=== PATIENT | female | born 2000 | race Caucasian/White ===

== ENCOUNTER 2024-04-29 01:25 | Outpatient (CLI) | payer BC, SELFPAY ==
[2024-04-29 14:37] LABS: Panorama Kit Sent via Fed Ex
[2024-04-29 14:42] LABS: Abs Immature Grans 0.02 10^3/uL (0.0-0.06); Absolute Basophil Count 0.03 10^3/uL (0.0-0.2); Absolute Eosinophil Count 0.18 10^3/uL (0.0-0.7); Absolute Lymphocyte Count 1.43 10^3/uL (1.2-3.4); Absolute Monocyte Count 0.61 10^3/uL (0.1-0.8); Absolute Neutrophil Count 3.88 10^3/uL (1.2-6.7); Basophils % 0.5 %; Eosinophils % 2.9 %; HCT 40.1 % (36.0-46.0); HGB 13.6 g/dL (11.2-15.7); Immature Grans % 0.3 %; Lymphocytes % 23.3 %; MCH 30.1 pg (27.0-33.0); MCHC 33.9 % (32.0-36.0); MCV 89 fL (80-95); Monocytes % 9.9 %; Neutrophils % 63.1 %; Platelet Count 256 10^3/uL (130-400); RBC 4.52 10^6/uL (3.93-5.22); RDW 12.4 % (11.7-14.6); RDW-SD 40.3 fL; WBC 6.15 10^3/uL (4.4-10.8)
[2024-05-01 13:12] LABS: HIV-1/2 Ag & Ab Screen Negative (Negative)
[2024-05-02 10:13] LABS: Rubella IgG Ab (UVM) Positive (See Note); Varicella IgG Antibody Positive (See Note)
[2024-05-02 11:31] LABS: Hepatitis B Surface Ag Negative (Negative)
[2024-05-02 12:09] LABS: Hepatitis C Ab w Rflx HCV PCR Negative (Negative)
[2024-05-02 18:47] LABS: Syphilis IgG w/Reflex Nonreactive (Nonreactive)
[2024-05-03 16:02] LABS: Specimen WB Whole Blood
[2024-05-06 16:55] LABS: Result Summary NEGATIVE; Specimen WB Whole Blood
== END 2024-04-29 01:26 | disposition home or self-care (01) ==
LOC: LBO 01:26
PROVIDERS: Visit Provider Advanced Practice Midwife
DX: Z34.91 Encounter for supervision of normal pregnancy, unspecified, first trimester (principal)
CPT/HCPCS: 36415; 81220; 81222; 81329; 86787; 86803; 86850; 86900; 86901; 87340; 87389; 85025; 86762; 86780

== ENCOUNTER 2024-04-29 14:12 | Outpatient (REF) | payer BC, SELFPAY ==
[2024-05-02 12:06] LABS: Chlamydia Result Negative (Negative); GC Result Negative (Negative)
== END 2024-04-29 14:13 | disposition home or self-care (01) ==
LOC: LBN 14:12
PROVIDERS: Visit Provider Advanced Practice Midwife
DX: Z34.91 Encounter for supervision of normal pregnancy, unspecified, first trimester (principal); Z3A.11 11 weeks gestation of pregnancy
CPT/HCPCS: 87077; 87491; 87591; 87086; 87186; 87480; 87510; 87660

== ENCOUNTER 2024-08-24 02:57 | Outpatient (CLI) | payer BC, SELFPAY ==
[2024-08-24 16:36] LABS: HCT 35.8 % (36.0-46.0); MCH 30.2 pg (27.0-33.0); MCHC 33.5 % (32.0-36.0); MCV 90 fL (80-95); MPV 10.3 fL (8.0-11.0); Platelet Count 221 10^3/uL (130-400); RBC 3.98 10^6/uL (3.93-5.22); RDW 14.2 % (11.7-14.6); RDW-SD 46.5 fL
[2024-08-24 16:45] LABS: Glucose,1 Hr (Glucola) 149 mg/dL (80-140)
== END 2024-08-24 02:58 | disposition home or self-care (01) ==
LOC: LBO 02:57
PROVIDERS: Visit Provider Advanced Practice Midwife
DX: Z34.92 Encounter for supervision of normal pregnancy, unspecified, second trimester (principal)
CPT/HCPCS: 36415; 82950; 85027

== ENCOUNTER 2024-09-08 12:51 | Outpatient (REF) | payer BC, SELFPAY | END 2024-09-08 12:52 | disposition home or self-care (01) | LOC: LBN 12:51 | PROVIDERS: Visit Provider Advanced Practice Midwife | DX: Z34.93 Encounter for supervision of normal pregnancy, unspecified, third trimester (principal); Z3A.30 30 weeks gestation of pregnancy | CPT/HCPCS: 87086 ==

== ENCOUNTER 2024-09-15 03:55 | Outpatient (CLI) | payer BC, SELFPAY ==
[2024-09-15 09:21] LABS: Glucose 1 Hour 162 mg/dL
[2024-09-15 11:30] LABS: Glucose 3 Hour 128 mg/dL
== END 2024-09-15 03:56 | disposition home or self-care (01) ==
LOC: LBO 03:55
PROVIDERS: Visit Provider Advanced Practice Midwife
DX: R73.09 Other abnormal glucose (principal)
CPT/HCPCS: 36415; 82951

== ENCOUNTER 2024-10-06 02:40 | Outpatient (CLI) | payer BC, SELFPAY ==
--- NOTE | 2024-10-06 07:45 | DI.US_ITS ---
Exam(s) US OB GAYLA WEIGHT EXAM: US OB GAYLA WEIGHT CLINICAL HISTORY: ,high fasting glucose, bleeding ,o20.9. TECHNIQUE: Transabdominal obstetrical ultrasound was performed. COMPARISON: US US OB 2-3 TRIMESTER from 06/28/2024 FINDINGS: There is a single viable intrauterine gestation with cardiac activity identified-142 bpm The fetus is presently in cephalic position . Amniotic fluid: There is a normal amount of amniotic fluid with an GAYLA of 16.64cm. Placental location: The placenta is anterior grade 2,with no evidence of placenta previa. Dating parameters place this at approximately 35 weeks and 3 days gestational age, implying FILIPPO of 11/07/2024. BPD measures 36 weeks and 3 days HC measures 36 weeks and 4 days AC measures 34 weeks and 5 days FL measures 33 weeks and 6 days Estimated weight is 2527 gm-5 pounds, 9 ounces Fetus is at the 53rd percentile on the Hadlock scale. IMPRESSION:: Viable 3rd trimester gestation, as described above. DATA REPOSITORY:
== END 2024-10-06 03:00 ==
PROVIDERS: PCP Pediatrics; Visit Provider Advanced Practice Midwife
DX: Z34.93 Encounter for supervision of normal pregnancy, unspecified, third trimester (principal); Z3A.36 36 weeks gestation of pregnancy; O20.8 Other hemorrhage in early pregnancy
CPT/HCPCS: 76816

== ENCOUNTER 2024-10-20 13:02 | Outpatient (REF) | payer BC, SELFPAY | END 2024-10-20 13:03 | disposition home or self-care (01) | LOC: LBN 13:02 | PROVIDERS: PCP Pediatrics; Visit Provider Advanced Practice Midwife | DX: Z34.90 Encounter for supervision of normal pregnancy, unspecified, unspecified trimester (principal) | CPT/HCPCS: 87081 ==

== ENCOUNTER 2024-11-03 13:03 | Outpatient (CLI) | payer BC, SELFPAY ==
--- NOTE | 2024-11-03 12:00 | DI.US_ITS ---
Exam(s) US OB GAYLA WEIGHT EXAM: US OB GAYLA WEIGHT CLINICAL HISTORY: Z34.90 size greater than dates, fundal height high for dates. TECHNIQUE: Transabdominal obstetrical ultrasound performed. COMPARISON: US US OB GAYLA WEIGHT from 10/06/2024 FINDINGS: Number of fetuses: 1 position: CEPHALIC Placental location: There is a grade 2 anterior placenta. No evidence of previa. BIOMETRIC DATA: BPD: 9.44cm, 38weeks 3days HC: 35.38cm, 41weeks 2days AC: 35.27cm, 39weeks 1day FL: 7.51cm, 38weeks 3days EFW: 3,705.88g, 8lb 2.47oz, 79.8% Composite Age: 39weeks 2days FILIPPO: 11/08/2024 Heart Rate: 137bpm Amniotic fluid index: 22.4cm. The largest pocket is 7.6 cm. IMPRESSION: 1. Single live intrauterine gestation as above. 2. Estimated weight is 3706gms. This is the 80th percentile. 3. Amniotic fluid index is 22.4 cm. The largest pocket is 7.6 cm. DATA REPOSITORY:
== END 2024-11-03 13:23 ==
LOC: DI 13:04
PROVIDERS: PCP Pediatrics; Visit Provider Advanced Practice Midwife
DX: Z34.93 Encounter for supervision of normal pregnancy, unspecified, third trimester (principal); Z3A.38 38 weeks gestation of pregnancy
CPT/HCPCS: 76816

== ENCOUNTER 2024-11-10 11:45 | Inpatient (IN) | payer BC, SELFPAY ==
[2024-11-10] VITALS (50 sets, daily range): BP systolic 108–128; BP diastolic 54–74; PULSE 0–135; RESP 16–18; TEMP 36.5–36.8; O2SAT 97–100; BMI 37.0
--- NOTE | 2024-11-10 11:53 | W.PM.OBHPL1 ---
Date of service: 11/10/24 Time of Service: 11:53 Assessment and Plan Assessment and plan (1) Normal labor: Status: Acute Assessment and plan: A: 24 yo G1 @ 39+4 wks, spontaneous onset of labor Did not meet criteria for GDM but elevated fasting glucose at 32 wks, TWG 45 lbs Spotty compliance with recommended QID testing, EFW @ 38 wks in 80th% by scan Moderate risk for SD and PPH due to EFW @ 3900 gms today Category 1 tracing on admission to , coping well with contractions P: Admit to , CBC and T&S, expectant management at this time Pt plans unmedicated , has support from FOB Encourage maternal movement and position changes, oral hydration OB-HPI Labor/Delivery History of Present Illness Reason for Visit: NST Chief Complaint: Uterine Contractions (contractions all morning, become more regular and frequent at 1000). FILIPPO Calculator Estimated Delivery Date Method Current WG Current Estimate 11/13/24 LMP (Certain) 39w 4d Other Estimates 11/13/24 Ultrasound #1 39w 4d History of Present Expected Delivery Route/Plan - CNM FOB/gabriella- De Velazco (first child) BG Eliza Wants unmedicated but will do what is needed Specific Issues/Plan 1. cFDNA low risk x5 female, CF & SMA negative, AFP is declined 2. Neg 5 Ps assessment 3. Vaginal spotting and discharge - vaginal pathogen screen=neg x3 4. Pos urine culture - enterococcus faecalis - treated with amoxicillin,KYLE neg 5. Glucola at 28 wks 149, 3 hr GTT @ 31 wks: fasting 99, other levels nml. [place] [facility] 3 wks or home monitoring. 5a. Discussed w/pt prefers to do QID home monitoring, supplies ordered, will bring log in next appt 5b. starting QID monitoring today 10/06/24, had declined initially then S>D and recommended strongly 6. S>D, 34wk EFW- 53%ile and GAYLA 16.6 6a. US at 38 weeks - GAYLA 22.4, EFW 8-3 Assessment: History Reviewed & Current Review of Systems Narrative: ROS completed and noncontributory PFSH All Active Problems (Updated 11/10/24 @ 13:18 by Sarah Delgado) Elevated glucose level (Acute) elevated fasting of 99 on 3 hr GTT, other levels nml Normal labor (Acute) (Acute) Medical History (Updated 11/10/24 @ 13:18 by Sarah Delgado) Missed menses Bleeding in early Fundal height high for dates History of asthma Family History (Updated 04/29/24 @ 13:08 by Ida Dailey CNM) Maternal Grandfather Kidney failure Fatty liver Mother Asthma Cholecystitis Social History Smoking/Tobacco Use Status: Never Smoking risk assessment performed?: Yes Alcohol Intake: never Substance use type: does not use Housing: house History History 1 Para 0 Hx # Term Pregnancies 0 Multiple births 0 Hx # Pregnancies 0 Ectopic pregnancies 0 AB induced 0 Hx Number of Living Children 0 AB spontaneous 0 Meds Allergies and Home Medications Allergies Allergy/AdvReac Type Severity Reaction Status Date / Time No Known Allergies Allergy Verified 11/03/24 11:09 Home Medications ?Medication ?Instructions ?Recorded ?Confirmed ?Type vitamins no.148-iron 27 1 cap PO DAILY 03/15/24 11/10/24 History mg-folate 1 mg-dha 205 mg capsule magnesium 200 mg tablet 400 mg PO DAILY 07/05/24 11/10/24 History alcohol swabs (Alcohol Wipes) 1 pad topical QID #100 ea 09/15/24 11/10/24 Rx blood sugar diagnostic (FreeStyle #100 ea 09/15/24 11/10/24 Rx Lite Strips) blood-glucose meter (FreeStyle #1 ea 09/15/24 11/10/24 Rx Lite Meter kit) lancets 28 gauge (FreeStyle #100 ea 09/15/24 11/10/24 Rx Lancets) Exam Physical Exam Vital signs: Pulse Pulse Ox 104 H 99 11/10/24 11:51 11/10/24 11:49 Vital Signs Reviewed: Yes Constitutional Constitutional: mild distress, obese and cooperative Detailed Labor and Delivery Exam Dilation: 4 Effacement (%): 100 station: -3 Position: OP Cervix position: mid Consistency: soft Amniotic Membrane Status: Intact (large forebag at cvx) Contraction Frequency(min): irreg Contraction Intensity: Mild/Moderate (with back pain) Fetus A Heart Rate Baseline: 145 Monitor Accelerations: Present Monitor Decelerations: None Variability: Moderate (6-25 BPM) Categories: Category I Est. Weight: 8 lb 9.568 oz Est. Weight: 3900 gms HEENT Exam HEENT Exam: Normal Neck Exam Neck Exam: Normal Chest/Brest/Axilla Exam Chest Exam: Normal Breast Exam Breast Exam: Not Done Respiratory Exam Respiratory Exam: Normal Cardiovascular Exam Cardiovascular Exam: Normal Abdominal Exam Abdominal Exam: Normal (gravid, soft) Rectal Exam Rectal Exam: Normal Exam Exam: Normal Extremities Exam Extremities Exam: Normal Back/Spine/Pelvis Exam Back Exam: Normal Pelvis Adequate: Yes Skin Exam Skin Exam: Normal Neurological Exam Neurological Exam: Normal Psychiatric Exam Psychiatric Exam: Normal Results Results Group Beta Strep: Negative Blood Type: A+ Rubella Status: Immune Varicella Immunity: Immune Risk Assessment Risk for Shoulder Dystocia Historical/Initial OB: NEGATIVE FOR: Pelvic Abnormality, Pre- BMI>30, Previous Shoulder Dystocia or Previous Macrosomia 36 Weeks: POSITIVE FOR: Maternal Weight Gain>40lbs; NEGATIVE FOR: Current Gestational DM or EFW>4500gms Increased Risk?: Yes Counselin10/27/24 Delivery Plan @ 36wks: Risk for Pre-Eclampsia Yes, if one or more: NEGATIVE FOR: Hx Pre-E/Gest HTN, Chronic HTN, Multiple Gestation, Pre-gestational DM, Renal Disease, Systemic Lupus or APA Syndrome Yes, if 2 or more: POSITIVE FOR: Nulliparity; NEGATIVE FOR: Age>= 35 yrs, >10yr btwn pregnancies, BMI>30, ethinicty, Mother/Sister w/ Pre-E or Previous IUGR Risk for Post- Hemorrhage Initial: NEGATIVE FOR: Multiple Gestation, Previous PPH, Known Clotting Deficiency, Grand Multiparity or Anticoagulation 36 Weeks: NEGATIVE FOR: Anemia, hgb<10, Low platelets(thrombocytopenia), Gestational HTN or Pre-E, Polyhydraminios or EFW>4500gms At Risk?: Yes Counseled re: Active Management: Yes Risks Reviewed Risks Reviewed Upon Admission: Yes
[2024-11-10 12:34] LABS: HCT 40.5 % (36.0-46.0); HGB 13.5 g/dL (11.2-15.7); MCH 29.9 pg (27.0-33.0); MCHC 33.3 % (32.0-36.0); MCV 90 fL (80-95); MPV 11.9 fL (8.0-11.0); Platelet Count 178 10^3/uL (130-400); RBC 4.52 10^6/uL (3.93-5.22); RDW 15.1 % (11.7-14.6); RDW-SD 48.9 fL; WBC 18.96 10^3/uL (4.4-10.8)
--- NOTE | 2024-11-10 18:06 | W.PM.OBNL1 ---
Date of service: 11/10/24 Time of Service: 18:06 Pelvic Exam Dilation: 6 (large forebag applied to cvx) Effacement (%): 100 station: -3 Position: ROP Contractions Monitor Mode: External Contraction Frequency(min): irregular q 2-4 Contraction Duration(sec): 50-70 Intensity: Moderate Fetus A Monitor: External (US) Heart Rate Baseline: 150 Variability: Moderate (6-25 BPM) (with periods of minimal variability) Categories: Category I (periods of cat 2 while variability is minimal, baseline occasionally ranging to 165) Accelerations: Absent Decelerations: None Amniotic Membrane Status: Intact Assessment Note: GAYLA at 38 wks = 22 cm Assessment and Plan Assessment and plan (1) Normal labor: Status: Acute Assessment and plan: A: Primipara in active labor, now 6 cm; low I&O during the day ROP position at high station, large forebag applied to cvx Category 1 tracing overall with periods of cat 2 d/t minimal variability Hgb 13.5, WBC 18.9, plts 178, random glucose 106 P: Bolus LR for rehydration and then continuous infusion Continuous EFM at this time, Dr. Rai consulting AROM discussed with pt, will consider when head descends Pt remains committed to unmedicated labor Objective Abnormal lab results 11/10/24 Range/Units 12:12 WBC 18.96 H (4.4-10.8) 10^3/uL RDW 15.1 H (11.7-14.6) % MPV 11.9 H (8.0-11.0) fL Temp Pulse Resp BP Pulse Ox 97.8 F 109 H 18 127/60 98 11/10/24 18:04 11/10/24 18:03 11/10/24 18:04 11/10/24 18:03 11/10/24 16:05 Laboratory Results WBC 18.96 10^3/uL (4.4-10.8) H 11/10/24 12:12 RBC 4.52 10^6/uL (3.93-5.22) 11/10/24 12:12 Hgb 13.5 g/dL (11.2-15.7) 11/10/24 12:12 Hct 40.5 % (36.0-46.0) 11/10/24 12:12 MCV 90 fL (80-95) 11/10/24 12:12 MCH 29.9 pg (27.0-33.0) 11/10/24 12:12 MCHC 33.3 % (32.0-36.0) 11/10/24 12:12 RDW 15.1 % (11.7-14.6) H 11/10/24 12:12 Plt Count 178 10^3/uL (130-400) 11/10/24 12:12 MPV 11.9 fL (8.0-11.0) H 11/10/24 12:12 ABO/Rh A Positive 11/10/24 12:12 Antibody Screen NEGATIVE 11/10/24 12:12 Vital Signs Reviewed: Yes Objective Narrative Objective Narrative: Pt breathing and moaning through contractions, coping well Accepts IV fluid for rehydration Normotensive, afebrile Subjective Interval history since last seen: Pt has ambulated, rested, soaked in warm tub, sipping water and juice without emesis, had BM, voided <100 ml twice since admission. States contractions are stronger and closer over the past 2 hours, declines nitrous or pain medication.
[2024-11-10] MEDS: Lactated Ringers 1,000 ML 1000 ML IV (18:19)
[2024-11-10] MEDS: Lactated Ringers 250 ML IV (19:00)
--- NOTE | 2024-11-10 21:07 | PGE_ITS ---
Date of service: 11/10/24 Time of Service: 21:07 Informed Consent Informed Consent: Regional Anesthesia and Risk,Benefits,Alternatives Discussed Pelvic Exam Dilation: 6 (Exam at 1999) Effacement (%): 100 station: -3 Position: ROP Cervix Position: mid Contractions Monitor Mode: External Contraction Frequency(min): q2-3 Intensity: Moderate Fetus A Monitor: External (US) Heart Rate Baseline: 140 Variability: Moderate (6-25 BPM) Categories: Category I Accelerations: Present Decelerations: None Amniotic Membrane Status: Intact (large forebag applied to cvx) Assessment and Plan Assessment and plan (1) Normal labor: Status: Acute Assessment and plan: A: need for pain management, maternal fatigue 2nd liter LR infusing, category 1 tracing P: DOCTORATE OF CHIROPRACTIC paged for epidural, FOB and pt's mother at bedside Reassess for progress and possible AROM when pt more comfortable Objective Vital Signs Reviewed: Yes Subjective Interval history since last seen: Contractions are stronger, back pain continues, started to get into tub again but turned back to bed since telemetry EFM was not working well. Has been using nitrous to moderate effect, feeling tired and pains seem never ending, now desires epidural.
--- NOTE | 2024-11-10 21:45 | ANES.PREOP_ITS ---
General Info Date of Service Date Performed: 11/10/24 Height: 5 ft 4 in Weight: 97.976 kg Body Mass Index (BMI): 37.0 Meds Allergies and Home Medications Allergies Allergy/AdvReac Type Severity Reaction Status Date / Time No Known Allergies Allergy Verified 11/03/24 11:09 Home Medication ?Medication ?Instructions ?Recorded vitamins no.148-iron 27 1 cap PO DAILY 03/15/24 mg-folate 1 mg-dha 205 mg capsule magnesium 200 mg tablet 400 mg PO DAILY 07/05/24 alcohol swabs (Alcohol Wipes) 1 pad topical QID #100 ea 09/15/24 blood sugar diagnostic (FreeStyle #100 ea 09/15/24 Lite Strips) blood-glucose meter (FreeStyle #1 ea 09/15/24 Lite Meter kit) lancets 28 gauge (FreeStyle #100 ea 09/15/24 Lancets) Current Visit Medications: Current Medications Generic Name Dose Route Start Last Admin Trade Name Freq PRN Reason Stop Dose Admin Fentanyl/Ropivacaine 200 ml 11/10/24 21:15 Fentanyl/Ropivacaine 2 Mcg/Ml And 0.1% 200 Ml Cadd Cassette EP DIRECTED KATELYN IV Miscellaneous Supplies 1 each 11/10/24 18:15 Iv Access IV DIRECTED KATELYN Sodium Chloride 0 ml 11/10/24 18:04 Normal Saline Flush 10 Ml Syr IVP PRN PRN Sodium Chloride 0 ml 11/10/24 20:00 Normal Saline Flush 10 Ml Syr IVP BID KATELYN Sodium Chloride 0 ml 11/10/24 18:04 Normal Saline 10 Ml Vial IJ DIRECTED PRN PFSH Active Problems Active Problems: Problem Status Onset Code Elevated glucose level Acute R73.09 Normal labor Acute O80, Z37.9 Acute Z34.90 Medical History Medical History (Updated 11/10/24 @ 13:18 by Sarah Delgado) Missed menses Bleeding in early Fundal height high for dates History of asthma Tobacco Smoking/Tobacco Use Status: Never Alcohol Alcohol Intake: never Substance Use Substance use type: does not use Prental History History 2 1 Para 0 Hx # Term Pregnancies 0 Multiple births 0 Hx # Pregnancies 0 Ectopic pregnancies 0 AB induced 0 Hx Number of Living Children 0 AB spontaneous 0 Vital Signs and Lab Results Vital Signs Most Recent Vital Signs in EMR: Most Recent Vital Signs Temp Pulse Resp BP Pulse Ox 36.6 C 111 H 18 127/60 97 11/10/24 18:04 11/10/24 20:11 11/10/24 18:04 11/10/24 18:03 11/10/24 20:11 Point of Care Results Point of Care Results: Finger Stick Blood Glucose 106 11/10/24 18:19 Lab Results 11/10/24 12:12 Blood Type / Crossmatch: 2 Antibody Screen NEGATIVE 11/10/24 Complete Blood Count: 2 White Blood Count 18.96 10^3/uL (4.4-10.8) H 11/10/24 12:12 Red Blood Count 4.52 10^6/uL (3.93-5.22) 11/10/24 12:12 Hemoglobin 13.5 g/dL (11.2-15.7) 11/10/24 12:12 Hematocrit 40.5 % (36.0-46.0) 11/10/24 12:12 Platelet Count 178 10^3/uL (130-400) 11/10/24 12:12 Complete Metabolic Panel: 2 No Data to Display Liver Function Panel: 2 No Data to Display Coagulation Panel: 2 No Data to Display Cardiac Panel: 2 No Data to Display Arterial Blood Gas: 2 No Data to Display Venous Blood Gas: 2 No Data to Display Pancreas Panel: 2 No Data to Display Thyroid Panel: 2 No Data to Display Infectious Disease: 2 No Data to Display Blood Cultures: 2 No Data to Display Toxicology Panel: 2 No Data to Display Panel: 2 No Data to Display Anesthesia Assessment and Plan Anesthesia History Personal History: No History of Anesthesia Complications Family History: No Family History of Anesthesia Complications Exercise Tolerance Exercise Tolerance: Metabolic Equivalents>4 Pertinent Negatives Pertinent Negatives: No Major Cardiovascular Symptoms or Complaints and No Major Pulmonary Symptoms or Complaints Cardiac & Pulmonary Exam Cardiac Exam: Normal S1/S2 Heart Sounds Pulmonary Exam: Clear Bilateral Breath Sounds Implantable Cardiac Device Does patient have a Pacemaker or an ICD?: No Airway Exam Known Difficult Airway: No Mallampati Class: 2 Mouth Opening: Normal (> 3cm) Thyromental Distance: Greater than 3 cm Neck Range of Motion: Full ROM Neck Circumference: Normal Teeth Condition: Normal Dentition ASA Classification ASA Score: ASA 2 Emergency Case?: No NPO Status NPO Status: Full Stomach () Status Status: Confirmed Anesthesia Plan Resuscitation Status: Full Code Anesthesia Technique: Labor Epidural Airway Planned: Natural Airway Monitors Used: Standard Monitors
[2024-11-10] MEDS: fentaNYL 100 MCG/2 ML VIAL (22:30)
--- NOTE | 2024-11-10 22:32 | ANES.NEUR_ITS ---
Epidural/Spinal Catheter Date Performed: 11/10/24 Procedure Start: 20:06 Procedure Stop: 22:36 Requesting Provider: Sarah Delgado Procedure Location: Obstetrics Reason Performed: Labor Epidural Standard Monitors Applied: Blood Pressure, SpO2 and See EMR for corresponding vital signs Patient Position: Sitting Sedation Given (Indicate Dose Given): No Sedation given Patient Mental Status: Awake Sterility: Hand Hygiene, Surgical Cap, Surgical Mask, Sterile Gloves, Sterile Drape/Sheet and Chlorhexidine Procedure Location: L3-L4 Interspace Epidural Needle: Tuohy 18 Gauge Needle Length: 3.5 Inch Needle Approach: Midline Epidural Procedure: Skin Prepped, Sterile Drape Placed, 1% Lidocaine to skin and subcutaneous tissue with 25G needle, Tuohy Needle placed, RICHARD to Saline Used, Epidural Catheter Placed, Negative Heme, Negative CSF Flow and Tuohy Needle Removed Catheter Placed?: Catheter Placed Test Dose (Indicate Dose Given): 3ml 1.5% Lidocaine with 1:200K Epinephrine Given and Negative Test Dose Loss of Resistance Depth (cm): 7 Catheter depth at skin (cm): 13 Dressing: Sorbaview Dressing Placed, Mastisol Used and Dressing reinforced with Tape Epidural Provid er Bolus (Indicate Dose Given): Total bolus dose given in 3-5 ml divided doses and Total Bupivacaine 0.25% Given (ml) Dose:: 6 ml Additives (Indicate Dose Given ): Fentanyl PF Dose:: 100 mcg Infusion Medication: Medication Infusion Began Medication Infusion: Ropivacaine 0.1% with Fentanyl 2mcg/ml Maintenance Infusion Rate (ml/hour): 10 PCEA Bolus Dose (ml): 5 Post Procedure Pain score (0-10): 0 Block Level: N/A Paresthesia: None Ultrasound: Not Used Number of Attempts (See previous attempts in note section): 2 Procedure Tolerated: No Complications and Patient tolerated well Procedure Outcome: Successful Procedure Comment:: First attempt at L2-3, parasthesia that radiated toward the vagina causing patient to jump, so needle withdrawn. Second attemot successful at L3-4 without sequelae. Performed By: Lindsay Cortes
[2024-11-10] MEDS: Bupivacaine 0.25% Pres-Free 10 ML VIAL (22:35)
[2024-11-10] MEDS: FentaNYL/ROPIvacaine 2 mcg/ml and 0.1% 200 ML CADD Cassette EP (22:38)
[2024-11-10] MEDS: Lactated Ringers 1,000 ML 150 ML IV (23:42)
[2024-11-11] VITALS (233 sets, daily range): BP systolic 42–134; BP diastolic 14–87; PULSE 81–152; RESP 8–24; TEMP 36.2–38.4; O2SAT 91–100
--- NOTE | 2024-11-11 00:28 | W.PM.OBNL1 ---
Date of service: 11/11/24 Time of Service: 00:29 Informed Consent Informed Consent: Augmentation of Labor, Risk,Benefits,Alternatives Discussed and Other (AROM with placement of internal monitors) Pelvic Exam Dilation: 6 Effacement (%): 100 station: -1 Contractions Monitor Mode: Internal Contraction Frequency(min): q3-4 Contraction Duration(sec): 50-70 Intensity: Mild/Moderate IUPC resting tone (mmHg): 20 IUPC peak pressure (mmHg): 40 Fetus A Monitor: Internal (FSE) Heart Rate Baseline: 145 Variability: Moderate (6-25 BPM) Categories: Category I Accelerations: Present Decelerations: None Amniotic Membrane Status: Ruptured Rupture Method: Spontaneous Amniotic Fluid: Clear Amount: large Date of Membrane Rupture: 11/11/24 Time of Membrane Rupture: 00:03 Assessment and Plan Assessment and plan (1) Slow progress in first stage of labor: Status: Acute Assessment and plan: A: No change in dilation @ 6 cm, vtx descended to -2, AROM of forebag with pt consent for clear fluid ISE/IUPC inserted with pt consent, cat 1 tracing noted, uncertain if IUPC is accurately recording intensity, frequency @ 3-4 minutes effective epidural anesthesia, pt feeling sleepy and resting P: Dr. Rai consulting, collaborative plan of care implemented Begin pitocin augmentation, monitor for dilation and descent with adequate labor Adjust IUPC or replace prn, pt positioned laterally with pnut ball Objective Vital Signs Reviewed: Yes Subjective Interval history since last seen: Epidural is providing relief, pt can still feel contractions with mild back pain but finds this tolerable, is feeling sleepy.
[2024-11-11] MEDS: Oxytocin/Normal Saline 30 UNIT/500 ML BAG 2 UNITS IV (00:44)
--- NOTE | 2024-11-11 02:57 | W.PM.OBNL1 ---
Date of service: 11/11/24 Time of Service: 02:57 Informed Consent Informed Consent: Augmentation of Labor and Risk,Benefits,Alternatives Discussed Pelvic Exam Dilation: 8 Effacement (%): 100 station: -1 (molding palpable to 0 station) Contractions Monitor Mode: External Contraction Frequency(min): q2 Fetus A Monitor: Internal (FSE) Heart Rate Baseline: 175 Variability: Minimal (1-5 BPM) Categories: Category II Accelerations: Absent Decelerations: None Amniotic Membrane Status: Ruptured Assessment and Plan Assessment and plan (1) Slow progress in first stage of labor: Status: Acute Assessment and plan: A: Cvx has advanced to 8 cm, head -1/0, molding palpable Cat 2 tracing d/t baseline @ 175 with minimal variability noted when FSE replaced at 0245 Pitocin decreased in response to contraction frequency and cat 2 tracing Recent oral maternal temp 36.8 (@0205) P: Dr. Rai up to review tracing Will switch to toco and remove IUPC, insert glass, 500 ml IVF bolus Reassess for descent in 2 hrs (2) Category II heart rate tracing during labor and delivery: Status: Acute Objective Vital Signs Reviewed: Yes Objective Narrative Objective Narrative: Intermittent mid back pain the improves with maternal positioning Pt has been feeling shakey but not cold Pitocin at 6 u/min, decreased to 5 due to tachysystole FSE fell off and replaced IUPC indicating frequency but unreliable for intensity/MVU's
--- NOTE | 2024-11-11 03:37 | W.PM.OBNL1 ---
Date of service: 11/11/24 Time of Service: 03:37 Informed Consent Informed Consent: Augmentation of Labor and Risk,Benefits,Alternatives Discussed Contractions Monitor Mode: External Contraction Frequency(min): q2 Fetus A Monitor: Internal (FSE) Heart Rate Baseline: 190 Variability: Minimal (1-5 BPM) Categories: Category II Accelerations: Absent Decelerations: None Amniotic Membrane Status: Ruptured Assessment and Plan Assessment and plan (1) Category II heart rate tracing during labor and delivery: Status: Acute Assessment and plan: A: Maternal temp deon to 38.4, maternal HR 130's, FHT baseline deon to 190 No accels and no decels, Reported change to Dr. Rai, suspected chorioamnionitis P: Pitocin turned off due to cat 2 tracing Ampicillin 2 gm IVPB, gentamycin 120 mg IVPB (dose verified via telepharmacy), tylenol 650 mg PO IV fluid bolus in progress, 2nd IV access initiated Pt and family questions addressed and answered as well as possible (2) Slow progress in first stage of labor: Status: Acute Objective Vital Signs Reviewed: Yes Subjective Interval history since last seen: Pt had large emesis of 800ml and afterward felt relief from shaking, with supine positioning her mid back pain went away. Epidural remains effective.
[2024-11-11] MEDS: AMPICILLIN SODIUM 2 GM in Normal Saline 100 ML IVPB ×4 (03:38→21:32)
[2024-11-11] MEDS: Acetaminophen 325 MG TAB 650 MG PO (03:54)
[2024-11-11] MEDS: GENTAMICIN 120 MG in Normal Saline 100 ML 200 MG IVPB (04:16)
[2024-11-11] MEDS: Normal Saline Flush 10 ML SYR IVP ×2 (04:32→19:48)
--- NOTE | 2024-11-11 05:04 | W.PM.OBNL1 ---
Date of service: 11/11/24 Time of Service: 05:04 Pelvic Exam Dilation: 7 Effacement (%): 100 station: -1 Contractions Monitor Mode: External Contraction Frequency(min): q2 Intensity: Mild/Moderate Fetus A Monitor: Internal (FSE) Heart Rate Baseline: 180 Variability: Minimal (1-5 BPM) Categories: Category II Accelerations: Absent Decelerations: None Amniotic Membrane Status: Ruptured Assessment and Plan Assessment and plan (1) Category II heart rate tracing during labor and delivery: Status: Acute Assessment and plan: A: vaginal exam without descent or further dilation, pitocin has been off >1hr, Amp and gent infused, maternal temp 37.9, mHR 139 cat 2 tracing persisting; contractions per toco q2 minutes P: Dr. Rai in to discuss route of delivery with pt (2) Slow progress in first stage of labor: Status: Acute Objective Vital Signs Reviewed: Yes Subjective Interval history since last seen: Epidural remains effective, mid-back pain intermittently occurring, pt aware of likely need for c/s and questions/concerns encouraged
--- NOTE | 2024-11-11 05:49 | OBCE_ITS ---
Date of service: 11/11/24 Time of Service: 05:49 Assessment and Plan Assessment and plan (1) Chorioamnionitis: Status: Acute Assessment and plan: Patient presented with WBC of 18K on admission 12/08/2024. Afebrile at that time. She developed elevated temperature with tachycardia at approximately 03:00 on 11/11/2024. Gentamicin dosing and 20 mg every 8 hours initiated along with ampicillin 2 g every 6 hours. Acetaminophen administered. tachycardia did not resolve temperatures decreased but still elevated. Will continue antibiotics until afebrile. (2) Abnormal labor: Status: Acute Assessment and plan: Slow progress of cervical change with regression of cervical dilation after oxytocin temporarily stopped. Patient consented to a primary low-transverse delivery.Preop counseling: She was informed of the risks of procedure including risk of damage to bowel, bladder, and blood vessels during the time of the delivery. If any of those injuries were to occur she may require a repair at the time of surgery or blood transfusion or possible hysterectomy. I reviewed the risk of infection and the administration of IV Abx prior to the surgery. History of Present Illness History of Present Illness Chief Complaint: abnormal labor, arrest of dilation, chorioamnioitis Narrative: Pt is a 24yo female who presented to the at 39w4d EGA on 11/10/24 ~12:00 with painful regular contractions. SVE 4cm, -3 station. Admitted and progressed to 6cm by 21:00 on 11/10/23. Pt received labor epidural after which SROM with clear fluid and Oxytocin augmentation of labor initiated. 11/11/24 @ 03:00: maximum Oxytocin dose 6mu/min with SVE 8cm, TMax 38.1, tachycardia. Oxytocin discontinued and 2gm Ampicillin, 120mg Gentamycin and Acetaminophen administered. 11/11/24 @ ~ 0500 with Oxytocin off for 2 hours cervical exam now 7 and vertex -2 per CNM report. tachycardia persists. Decision to proceed with pLTCS discussed with pt and family. Informed and written consent obtained. OR crew and peds provider notified. Consults Consult date: 11/11/24 Requesting physician: Sarah Delgado Review of Systems Narrative: Pain in back at epidural sight now resolved. Feels hot. Anxious about the procedure All systems reviewed & are unremarkable except as noted in HPI and below PFSH All Active Problems (Updated 11/11/24 @ 06:20 by Irlanda Rai MD) Abnormal labor (Acute) Chorioamnionitis (Acute) Category II heart rate tracing during labor and delivery (Acute) Slow progress in first stage of labor (Acute) Elevated glucose level (Acute) elevated fasting of 99 on 3 hr GTT, other levels nml (Acute) Medical History (Updated 11/11/24 @ 06:20 by Irlanda Rai MD) Normal labor Missed menses Bleeding in early Fundal height high for dates History of asthma Family History (Updated 04/29/24 @ 13:08 by Ida Dailey CNM) Maternal Grandfather Kidney failure Fatty liver Mother Asthma Cholecystitis Social History Smoking/Tobacco Use Status: Never Smoking risk assessment performed?: Yes Alcohol Intake: never Substance use type: does not use Housing: house History History 2 1 Para 0 Hx # Term Pregnancies 0 Multiple births 0 Hx # Pregnancies 0 Ectopic pregnancies 0 AB induced 0 Hx Number of Living Children 0 AB spontaneous 0 Exam Const General: no acute distress Nutritional Appearance: well nourished Orientation: alert, awake and oriented x3 Resp Effort & Inspection: normal respiratory effort Auscultation: clear to auscultation bilaterally Cardio Rate: tachycardic Rhythm: regular rhythm GI Palpation: soft (gravid) Amniotic Fluid: clear Other: SVE per CNM Skin General skin exam: no rashes or lesions noted Neuro General: patient alert, patient awake and patient oriented x3 Motor: other ( tone secondary to epidural) Extrem General: normal to inspection and edema (1+ pretibial edema) Psych Appearance: grossly normal Mental Status: mental status grossly normal Speech and Movement: speech and movement normal Mood: congruent mood Affect: normal affect Attitude: cooperative Results Last Vital Signs Temp 100.2 F H 11/11/24 04:49 Pulse 133 H 11/11/24 05:46 Resp 18 11/10/24 18:04 BP 105/53 L 11/11/24 05:33 Pulse Ox 95 11/11/24 05:46 Labs 11/10/24 12:12 Labs: Laboratory Results - last 24 hr 11/10/24 12:12 WBC 18.96 H RBC 4.52 Hgb 13.5 Hct 40.5 MCV 90 MCH 29.9 MCHC 33.3 RDW 15.1 H Plt Count 178 MPV 11.9 H ABO/Rh A Positive Antibody Screen NEGATIVE
[2024-11-11] MEDS: ceFAZolin 3,000 MG in Normal Saline 100 ML 200 MG IVPB (06:10)
[2024-11-11] MEDS: Lactated Ringers 1,000 ML 200 ML IV ×2 (06:29→07:30)
[2024-11-11] MEDS: CLINDAMYCIN 900 MG/50 ML BAG 50 MG IVPB ×3 (06:40→21:57)
[2024-11-11] MEDS: Bupivacaine 0.25% Pres-Free 30 ML VIAL (06:50)
[2024-11-11] MEDS: AZITHROMYCIN 500 MG in Normal Saline 250 ML 250 MG IVPB (06:57)
--- NOTE | 2024-11-11 07:00 | PLAC_PTH ---
PATIENT: Nasir Silvestre LOC: OBS U#:[id number] AGE/SX: 24/F ROOM: OBS.305 RE11/10/[address]: RAISSA: 2000 BED: A DIS: 11/14/2024 SPEC #: [id number] RECD: 11/11/24 12:17 STATUS: MIKE REQ #: [id number] CINDY: 11/11/24 07:[address]: Sarah Delgado DEPT: Surgical Specimen RECD BY: Rola Hennessy ENTERED: 11/11/24 12:18 SP TYPE: PLAC OTHR DR: Mary Soria Tissues: 1 - PLACENTA (3RD TRIMESTER) Procedures: GROSS AND MICRO LEVEL 5 Comments: [id number]
[2024-11-11] MEDS: Norepinephrine in D5W 8 MG/250 ML BAG 9.375 MG IV (07:20)
[2024-11-11] MEDS: Oxytocin/Normal Saline 30 UNIT/500 ML BAG 95 UNITS IV (07:30)
--- NOTE | 2024-11-11 08:06 | W.PM.OBCSECT ---
Date of service: 11/11/24 Time of Service: 08:06 Operative Note Operative Note Delivery Method: Unscheduled STAT: No and Primary NTSV>37 Weeks: Yes DATE OF PROCEDURE: 11/11/24 PRE-OP DIAGNOSES: 39w5D EGA, abnormal labor, chorioamnionitis POST-OP DIAGNOSES: same PROCEDURE: Primary low-transverse delivery SURGEON: Irlanda Rai Structural [employer] Erector: Nitza Ayala Anesthesia: spinal Estimated blood loss (mL): 600 Pathology: other (Cord blood to lab, umbilical cord gases, placenta to pathology) Complications: None Patient was transported to: PACU Patient's condition: stable Indications: 24-year-old G1, P1 female who was admitted in early active labor on 11/10/2024. Slow labor progress. Patient received oxytocin augmentation for maximum dilation of 8 cm. Developed tachycardia and maternal fever and Oxytocin infusion was discontinued for 2 hours while antibiotics were administered. During two hours without Oxytocin infusion cervix regressed from 8 to 7cm and vertex regressed from -1 to -2. Pt received initial Gentmycin dose of 120mg along with Ampicillin 2gm and Clindamycin 900mg three hours prior to OR. Plan is to continue dosing those antibiotics until pt has been afebrile for 24hrs. Gent dosing will be changed to 360mg q24hr. Findings: viable female infant in OP position. Wt:4050gm Apgars 6/9 . Clear amniotic fluid. L broad ligament fibroid 3cm in diameter in close approximation to L uterine cornua. Nl uterus, ovaries and fimbria. Umbilical arterial cord gases: PH 7.28, BE -2. Procedure Description: Patient was taken to the operating room she is placed in the sitting position, epidural catheter removed and spinal anesthesia was administered without difficulty. She was then placed in the dorsal supine position with a leftward tilt. SCDs were placed and scalp electrode removed. A Richards catheter to gravity drainage was already in place. A vaginal prep with Betadine was performed and the patient was prepped and draped in the usual sterile fashion.Surgical timeout was performed. Preop antibiotics had been administered per protocol a dose of IV Tranexamic Acid was administere. . After a adequate level of anesthesia was achieved a Pfannenstiel skin incision was made approximately 2 cm superior to the pubic symphysis using a scalpel and the underlying subcutaneous tissue dissected using Bovie electrocautery to the level of the rectus fascia. The rectus fascia was then nicked in the midline and the fascial incision extended laterally using Bovie electrocautery. 2 Juan José clamps were applied to the superior rectus fascia and the rectus fascia was dissected off of the underlying rectus muscles using Bovie electrocautery and blunt technique. A similar technique was carried out on the inferior rectus fascia. Rectus muscles were then in the midline and the peritoneum entered bluntly. The peritoneal incision was extended laterally using blunt technique. The vesicle-uterine peritoneum over lower uterine segment was incised with curved Lomax scissors and the bladder flap created bluntly. Scalpel was used to incise the lower uterine segment in a transverse fashion. The uterine incision was extended bluntly and the amniotic sac was ruptured with clear amniotic fluid noted. A single gloved hand was placed into the uterine cavity and the head was successfully delivered through the uterine incision followed by the trunk and extremities with the assistance of fundal pressure. The cord was doubly clamped and cut and the handed off to the waiting pediatric team. A segment of umbilical cord was obtained and the placenta was extracted with a combination of fundal massage and gentle cord traction. The uterus was exteriorized cleared of all clots and debris and the uterine incision reapproximated with a running lock suture of 0 Vicryl followed by a second imbricating suture of 0 Vicryl. Uterine incision was noted be hemostatic. The uterus was returned to the abdomen and the paracolic gutters cleared of all clots and debris. Uterine incision and the along with the bladder flap and the abdominal wall were all inspected and noted to be hemostatic. The rectus fascia was reapproximated with a running suture of 0 Vicryl. space within the subcutaneous tissue closed with an interrupted suture of 2-0 Vicryl. The skin incision was reapproximated with a subcuticular closure of 4-0 Vicryl. Skin glue as applied to the incision and a Picco dressing was applied. The uterus was massaged for any remaining clots and debris. The patient was transported to PACU for further monitoring of blood pressure. All sponge, lap, and needle counts correct x2. [place] Gestational Age in Weeks/Days: 39 Weeks and 5 Days Infant Gender: Female weight: 8 lb 14.86 oz See Nursing Delivery Note for weight and Scores: Apgars: 6/9. Her parents intend to name her Eliza.
[2024-11-11] MEDS: Lactated Ringers 1,000 ML 120 ML IV (09:05)
[2024-11-11] MEDS: Lactated Ringers 500 ML 1000 ML IV (09:43)
[2024-11-11 11:17] LABS: Abs Immature Grans 0.57 10^3/uL (0.0-0.06); HCT 35.7 % (36.0-46.0); HGB 11.7 g/dL (11.2-15.7); Lactate 2.9 mmol/L (<or=2.0); MCH 30.2 pg (27.0-33.0); MCHC 32.8 % (32.0-36.0); MCV 92 fL (80-95); MPV 12.3 fL (8.0-11.0); Platelet Count 159 10^3/uL (130-400); RBC 3.88 10^6/uL (3.93-5.22); RDW 15.3 % (11.7-14.6); RDW-SD 50.5 fL
[2024-11-11 11:25] LABS: WBC 31.69 10^3/uL (4.4-10.8)
[2024-11-11 11:28] LABS: Bilirubin Negative (Negative); Blood Large (Negative); Clarity Clear (Clear); Glucose Negative (Negative); Ketones Negative (Negative); Leukocyte Esterase Negative (Negative); Nitrite Negative (Negative); Urobilinogen 0.2 mg/dL (Up to 0.2)
[2024-11-11 11:37] LABS: Absolute Lymphocyte Count 0.32 10^3/uL (1.2-3.4); Absolute Neutrophil Count 29.47 10^3/uL (1.2-6.7); Bands % 27 %
[2024-11-11 11:38] LABS: Absolute Monocyte Count 1.27 10^3/uL (0.1-0.8); Diff Comment Manual Differential
[2024-11-11 11:39] LABS: INR 1.1 (0.9-1.1); PTT Activated 28.3 sec (20.6-30.2); Prothrombin Time 10.9 sec (9.1-11.1); RBC Morphology Normal
[2024-11-11 11:43] LABS: ALT 16 U/L (14-59); AST 23 U/L (15-37); Albumin 1.8 g/dL (3.4-5.0); Alkaline Phosphatase 133 U/L (46-116); Anion Gap 11.5 mmol/L (3-11); BUN 7 mg/dL (7-18); Bilirubin, Total 1.37 mg/dL (0.2-1.0); CO2 24.5 mmol/L (21.0-32.0); CREATININE 1.1 mg/dL (0.55-1.02); Calcium 8.9 mg/dL (8.5-10.1); Chloride 106 mmol/L (98-107); Estimated GFR 72.86 (mL/min/1.73m2); Glucose 134 mg/dL (74-106); Potassium 3.2 mmol/L (3.5-5.1); Sodium 142 mmol/L (136-145); Total Protein 5.5 g/dL (6.4-8.2)
--- NOTE | 2024-11-11 11:45 | PGE_ITS ---
Date of Service Date of service: 11/11/24 Time of Service: 11:45 Objective Last Vital Signs Temp 99.0 F 11/11/24 11:36 Pulse 107 H 11/11/24 11:36 Resp 17 11/11/24 11:36 BP 117/68 11/11/24 11:07 Pulse Ox 97 11/11/24 11:36 Laboratory Results - last 24 hr 11/10/24 11/11/24 11/11/24 12:12 10:02 10:25 WBC 18.96 H RBC 4.52 Hgb 13.5 Hct 40.5 MCV 90 MCH 29.9 MCHC 33.3 RDW 15.1 H Plt Count 178 MPV 11.9 H Immature Gran % Neutrophils % Band Neutrophils % Lymphocytes % Monocytes % Eosinophils % Basophils % Nucleated RBC % Absolute Neutrophils Absolute Lymphocytes Absolute Monocytes Absolute Eosinophils Absolute Basophils RBC Morphology PT INR APTT VBG Lactate Sodium Cancelled Potassium Cancelled Chloride Cancelled Carbon Dioxide Cancelled Anion Gap Cancelled BUN Cancelled Creatinine Cancelled Est GFR (CKD-EPI 2020) Cancelled Glucose Cancelled Calcium Cancelled Total Bilirubin Cancelled AST Cancelled ALT Cancelled Alkaline Phosphatase Cancelled Total Protein Cancelled Albumin Cancelled Urine Color Yellow Urine Clarity Clear Urine pH 7.0 Ur Specific [place] 1.010 Urine Protein Trace Urine Ketones Negative Urine Blood Large H Urine Nitrite Negative Urine Bilirubin Negative Urine Urobilinogen 0.2 Ur Leukocyte Esterase Negative Urine Glucose Negative ABO/Rh A Positive Antibody Screen NEGATIVE 11/11/24 11:05 WBC 31.69 H* RBC 3.88 L Hgb 11.7 Hct 35.7 L MCV 92 MCH 30.2 MCHC 32.8 RDW 15.3 H Plt Count 159 MPV 12.3 H Immature Gran % See Differential Neutrophils % 66.0 Band Neutrophils % 27 Lymphocytes % 1.0 Monocytes % 4.0 Eosinophils % 0.0 Basophils % 0.0 Nucleated RBC % 0.0 Absolute Neutrophils 29.47 H Absolute Lymphocytes 0.32 L Absolute Monocytes 1.27 H Absolute Eosinophils 0.00 Absolute Basophils 0.00 RBC Morphology Normal PT 10.9 INR 1.1 APTT 28.3 VBG Lactate 2.9 H* Sodium 142 Potassium 3.2 L Chloride 106 Carbon Dioxide 24.5 Anion Gap 11.5 H BUN 7 Creatinine 1.1 H Est GFR (CKD-EPI 2020) 72.86 Glucose 134 H Calcium 8.9 Total Bilirubin 1.37 H AST 23 ALT 16 Alkaline Phosphatase 133 H Total Protein 5.5 L Albumin 1.8 L Urine Color Urine Clarity Urine pH Ur Specific [place] Urine Protein Urine Ketones Urine Blood Urine Nitrite Urine Bilirubin Urine Urobilinogen Ur Leukocyte Esterase Urine Glucose ABO/Rh Antibody Screen Objective Narrative Objective Narrative: 24 yo G1 now P1001 s/p 39 wk primary low transverse section for arrest of labor; patient had presented to L&D for active labor. She was expectantly managed by the midwives. Around 2 am she reportedly developed a fever and her baby became tachycardic. She was diagnosed with chorioamnionitis and Ampicillin, Gentamycin, and Clindamycin was initiated. She was taken to the OR around 7 am for section which was reportedly completed without issue. When she arrived in PACU, her blood pressures were noted to be soft. She had been on phenylephrine in the - 2L while in labor, 1700 in OR, 500 bolus in PACU - Gentamycin; Cr 1.1 - Recieved Gentamycin 120 mg
[2024-11-11 11:46] LABS: WBC 0-2 HPF (0-5)
[2024-11-11 11:47] LABS: Bacteria Negative HPF (Negative); C & S Indicated? C&S Done As Ordered; Casts Negative LPF (Negative); Crystals Negative HPF (Negative); Epithelial Cells Negative HPF (Negative); Mucus Negative (Negative); RBC 20-50 HPF (0-2)
[2024-11-11 11:52] LABS: COVID-19 PCR Negative (Negative); Influenza A PCR Negative (Negative); Influenza B PCR Negative (Negative); RSV PCR Negative (Negative)
[2024-11-11 11:59] LABS: Source Nasopharynx
[2024-11-11] MEDS: Ketorolac 30 MG/ML VIAL IVP (13:11)
[2024-11-11 13:53] LABS: Fibrinogen (Stat) (Littleton) 463 mg/dL (208-434)
[2024-11-11 14:35] LABS: Lactate 3.1 mmol/L (<or=2.0)
[2024-11-11 14:38] LABS: HCT 28.8 % (36.0-46.0); HGB 9.7 g/dL (11.2-15.7); MCH 30.9 pg (27.0-33.0); MCHC 33.7 % (32.0-36.0); MCV 92 fL (80-95); Platelet Count 144 10^3/uL (130-400); RBC 3.14 10^6/uL (3.93-5.22); RDW 15.5 % (11.7-14.6); RDW-SD 51.2 fL
[2024-11-11 14:40] LABS: WBC 31.02 10^3/uL (4.4-10.8)
[2024-11-11 14:52] LABS: ALT 10 U/L (14-59); AST 18 U/L (15-37); Albumin 1.4 g/dL (3.4-5.0); Alkaline Phosphatase 106 U/L (46-116); Anion Gap 9.5 mmol/L (3-11); BUN 7 mg/dL (7-18); CO2 23.5 mmol/L (21.0-32.0); Calcium 8.3 mg/dL (8.5-10.1); Chloride 108 mmol/L (98-107); Estimated GFR 81.69 (mL/min/1.73m2); Glucose 145 mg/dL (74-106); Sodium 141 mmol/L (136-145); Total Protein 4.5 g/dL (6.4-8.2)
--- NOTE | 2024-11-11 15:41 | W.PM.PROGNOT ---
Date of Service Date of service: 11/11/24 Time of Service: 15:42 Assessment and Plan Assessment and plan (1) Sepsis: Status: Acute Objective Last Vital Signs Temp 97.7 F 11/11/24 14:32 Pulse 101 H 11/11/24 15:01 Resp 19 11/11/24 15:01 BP 88/51 L 11/11/24 15:01 Pulse Ox 94 11/11/24 15:01 Laboratory Results - last 24 hr 11/11/24 11/11/24 11/11/24 10:02 10:25 11:05 WBC 31.69 H* RBC 3.88 L Hgb 11.7 Hct 35.7 L MCV 92 MCH 30.2 MCHC 32.8 RDW 15.3 H Plt Count 159 MPV 12.3 H Immature Gran % See Differential Neutrophils % 66.0 Band Neutrophils % 27 Lymphocytes % 1.0 Monocytes % 4.0 Eosinophils % 0.0 Basophils % 0.0 Nucleated RBC % 0.0 Absolute Neutrophils 29.47 H Absolute Lymphocytes 0.32 L Absolute Monocytes 1.27 H Absolute Eosinophils 0.00 Absolute Basophils 0.00 RBC Morphology Normal PT 10.9 INR 1.1 APTT 28.3 Fibrinogen 463 H VBG Lactate 2.9 H* Sodium Cancelled 142 Potassium Cancelled 3.2 L Chloride Cancelled 106 Carbon Dioxide Cancelled 24.5 Anion Gap Cancelled 11.5 H BUN Cancelled 7 Creatinine Cancelled 1.1 H Est GFR (CKD-EPI 2020) Cancelled 72.86 Glucose Cancelled 134 H Calcium Cancelled 8.9 Total Bilirubin Cancelled 1.37 H AST Cancelled 23 ALT Cancelled 16 Alkaline Phosphatase Cancelled 133 H Total Protein Cancelled 5.5 L Albumin Cancelled 1.8 L Urine Color Yellow Urine Clarity Clear Urine pH 7.0 Ur Specific [place] 1.010 Urine Protein Trace Urine Ketones Negative Urine Blood Large H Urine Nitrite Negative Urine Bilirubin Negative Urine Urobilinogen 0.2 Ur Leukocyte Esterase Negative Urine RBC 20-50 H Urine WBC 0-2 Ur Epithelial Cells Negative Urine Crystals Negative Urine Bacteria Negative Urine Casts Negative Urine Mucus Negative Ur Culture Indicated? C&S Done As Ordered Urine Glucose Negative COVID-19 Source SARS-CoV-2 (PCR) Influenza Type A (PCR) Influenza Type B (PCR) RSV (PCR) 11/11/24 11/11/24 11:06 14:26 WBC 31.02 H* RBC 3.14 L Hgb 9.7 L D Hct 28.8 L MCV 92 MCH 30.9 MCHC 33.7 RDW 15.5 H Plt Count 144 MPV 12.0 H Immature Gran % Neutrophils % Band Neutrophils % Lymphocytes % Monocytes % Eosinophils % Basophils % Nucleated RBC % Absolute Neutrophils Absolute Lymphocytes Absolute Monocytes Absolute Eosinophils Absolute Basophils RBC Morphology PT INR APTT Fibrinogen VBG Lactate 3.1 H* Sodium 141 Potassium 3.0 L Chloride 108 H Carbon Dioxide 23.5 Anion Gap 9.5 BUN 7 Creatinine 1.0 Est GFR (CKD-EPI 2020) 81.69 Glucose 145 H Calcium 8.3 L Total Bilirubin 0.90 AST 18 ALT 10 L Alkaline Phosphatase 106 Total Protein 4.5 L Albumin 1.4 L Urine Color Urine Clarity Urine pH Ur Specific [place] Urine Protein Urine Ketones Urine Blood Urine Nitrite Urine Bilirubin Urine Urobilinogen Ur Leukocyte Esterase Urine RBC Urine WBC Ur Epithelial Cells Urine Crystals Urine Bacteria Urine Casts Urine Mucus Ur Culture Indicated? Urine Glucose COVID-19 Source Nasopharynx SARS-CoV-2 (PCR) Negative Influenza Type A (PCR) Negative Influenza Type B (PCR) Negative RSV (PCR) Negative
--- NOTE | 2024-11-11 15:57 | W.ANESVAS ---
Arterial Line Placement Date Performed: 11/11/24 Procedure Time: 12:14 Procedure Location: PACU Requesting Provider: Tiara Timeout Performed: Yes Sedation Given (Indicate Dose Given): No Sedation given Patient Mental Status: Awake Sterility: Hand Hygiene, Surgical Cap, Surgical Mask, Sterile Gloves, Sterile Drape/Sheet and Chlorhexidine Laterality: Right Insertion Site: Radial Arterial Line Catheter: 20G Arrow Arterial Line Procedure: 1% Lidocaine to skin and subcutaneous tissue with 25g needle, Vessel accessed with needle, Vessel accessed with catheter over needle, Guidewire placed with ease and Catheter placed without resistance Dressing: Tegaderm Applied and Other (Statlock) Ultrasound: Sterile probe cover and gel used Ultrasound Image Saved?: No Number of Attempts (See previous attempts in note section): 2 Procedure Tolerated: No Complications Procedure Outcome: Successful Procedure Comment:: First attempt able to access vessel, unable to thread the catheter Performed By: Bette Amin
--- NOTE | 2024-11-11 15:59 | W.ANESVAS ---
Midline Placement Date Performed: 11/11/24 Procedure Time: 11:47 Requesting Provider: Bette Amin Procedure Location: PACU Sedation Given (Indicate Dose Given): No Sedation given Patient Mental Status: Awake Sterility: Hand Hygiene, Surgical Cap, Surgical Mask, Sterile Gloves, Sterile Drape/Sheet and Chlorhexidine Laterality: Right Insertion Site: Basilic Midline Device: PowerGlide Pro 18G Catheter Length: 10 cm Midline Procedure Procedure: 1% Lidocaine to skin and subcutaneous tissue with 25g needle, Vessel accessed with catheter over needle, Guidewire placed with ease, Catheter placed without resistance and Guidewire removed Dressing: Tegaderm Applied and Statlock Applied Blood Return: Present Flushes: Easily Ultrasound: Sterile probe cover and gel used Ultrasound Image Saved?: Yes Number of Attempts (See previous attempts in note section): 1 Procedure Tolerated: No Complications Procedure Outcome: Successful Procedure Comment:: Non-pulsatile, easily free flows to fluid Performed By: Bette Amin
--- NOTE | 2024-11-11 16:11 | MCONE_ITS ---
Date of service: 11/11/24 Time of Service: 16:11 Assessment and Plan Assessment and plan (1) Sepsis: Status: Acute Assessment and plan: - patient meets criteria for severe sepsis (WBC, HR, hypotension) - chorioamnionitis as suspected source - 2250ml LR given trent-op. 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 for aggressive volume repletion - patient seems to be tolerating BPs in low 80s, will try to avoid restarting pressors and using volume instead but can restart norepi if this becomes - abx as discussed below (2) Chorioamnionitis: Status: Acute Assessment and plan: - primary service started ampicillin, gent, and clinda trent-op as appropriate, can continue this for now - check blood, urine, cultures - monitor significant leukocytosis (3) delivery delivered: Status: Acute Assessment and plan: post-op care per primary service DVT ppx with Lovenox History of Present Illness History of Present Illness Chief Complaint: hypotension/sepsis Narrative: This is a 24 yo female with pmhx: 39 wk that presented yesterday in labor. Initially planned for vaginal delivery.. Noted to have chorioamnionitis and was given ampicillin/clinda/gent IV for fever. Eventually taken for c- section this morning with live . Baby is apparently healthy without concerns. However, immediately post-op, patient had significant hypotension requiring norepi infusion. Our service was asked by OB-air/ocean export clerk Dr. Angela to consult on patient after she was transfered from PACU to our ICU. I did see the patient in the ICU. Although she had been on 4mcg/min prior to transfer, this was stopped as she was moved. When she arrived, her SBP was over 100. IT has since dropped into the 80s with MAPS around 58-60 per alexander. Patient is AAOx3, in no distress. Denies pain. Mentating at baseline. Was able to interact and breastfeed baby prior to my arrival without much difficulty. Afebrile now. Review of Systems Constitutional Constitutional: Reports as per HPI Cardiovascular Cardiovascular: Denies chest pain, Reports pedal edema (trace, prior to admission), Denies irregular heart rhythm and Denies dyspnea Respiratory Respiratory: Denies cough, Denies dyspnea, Denies stridor and Denies wheezing Gastrointestinal Gastrointestinal: Reports as per HPI, Denies abdominal pain, Denies change in stool character, Denies diarrhea, Denies nausea and Denies vomiting Musculoskeletal Musculoskeletal: Reports system reviewed and no additional complaints, except as documented Neurologic Neurologic: Reports system reviewed and no additional complaints, except as documented Endocrine Endocrine: Reports system reviewed and no additional complaints, except as documented Allergic/Immunologic Allergic/Immunologic: Denies wheezing PFSH All Active Problems (Updated 11/11/24 @ 15:44 by Miley Mann DO) Sepsis (Acute) delivery delivered (Acute) Arrest of dilation, delivered, current hospitalization (Acute) Abnormal labor (Acute) Chorioamnionitis (Acute) Category II heart rate tracing during labor and delivery (Acute) Slow progress in first stage of labor (Acute) Elevated glucose level (Acute) elevated fasting of 99 on 3 hr GTT, other levels nml (Acute) Medical History (Updated 11/11/24 @ 15:44 by Miley Mann DO) Normal labor Missed menses Bleeding in early Fundal height high for dates History of asthma Family History (Updated 04/29/24 @ 13:08 by Ida Dailey CNM) Maternal Grandfather Kidney failure Fatty liver Mother Asthma Cholecystitis Social History Smoking/Tobacco Use Status: Never Smoking risk assessment performed?: Yes Alcohol Intake: never Substance use type: does not use Housing: house History History 2 1 Para 0 Hx # Term Pregnancies 0 Multiple births 0 Hx # Pregnancies 0 Ectopic pregnancies 0 AB induced 0 Hx Number of Living Children 0 AB spontaneous 0 Exam Const General: cooperative, healthy appearing, comfortable and no acute distress Orientation: alert, awake and oriented x3 Chest Chest: normal inspection of the chest Resp Effort & Inspection: normal respiratory effort and no stridor Auscultation: clear to auscultation bilaterally, no rales, no rhonchi and no wheezes Cardio Rate: regular rate Rhythm: regular rhythm Heart Sounds: S1 normal and S2 normal GI Inspection: normal to inspection Palpation: soft Auscultation: normal bowel sounds Skin General skin exam: no rashes or lesions noted Neuro Cranial Nerves: CN's II-XI intact bilaterally Results Last Vital Signs Temp 36.5 C 11/11/24 14:32 Pulse 101 H 11/11/24 15:01 Resp 19 11/11/24 15:01 BP 88/51 L 11/11/24 15:01 Pulse Ox 94 11/11/24 15:01 Labs 11/11/24 14:26 11/11/24 14:26 Labs: Laboratory Results - last 24 hr 11/11/24 11/11/24 11/11/24 10:02 10:25 11:05 WBC 31.69 H* RBC 3.88 L Hgb 11.7 Hct 35.7 L MCV 92 MCH 30.2 MCHC 32.8 RDW 15.3 H Plt Count 159 MPV 12.3 H Immature Gran % See Differential Neutrophils % 66.0 Band Neutrophils % 27 Lymphocytes % 1.0 Monocytes % 4.0 Eosinophils % 0.0 Basophils % 0.0 Nucleated RBC % 0.0 Absolute Neutrophils 29.47 H Absolute Lymphocytes 0.32 L Absolute Monocytes 1.27 H Absolute Eosinophils 0.00 Absolute Basophils 0.00 RBC Morphology Normal PT 10.9 INR 1.1 APTT 28.3 Fibrinogen 463 H VBG Lactate 2.9 H* Sodium Cancelled 142 Potassium Cancelled 3.2 L Chloride Cancelled 106 Carbon Dioxide Cancelled 24.5 Anion Gap Cancelled 11.5 H BUN Cancelled 7 Creatinine Cancelled 1.1 H Est GFR (CKD-EPI 2020) Cancelled 72.86 Glucose Cancelled 134 H Calcium Cancelled 8.9 Total Bilirubin Cancelled 1.37 H AST Cancelled 23 ALT Cancelled 16 Alkaline Phosphatase Cancelled 133 H Total Protein Cancelled 5.5 L Albumin Cancelled 1.8 L Urine Color Yellow Urine Clarity Clear Urine pH 7.0 Ur Specific [place] 1.010 Urine Protein Trace Urine Ketones Negative Urine Blood Large H Urine Nitrite Negative Urine Bilirubin Negative Urine Urobilinogen 0.2 Ur Leukocyte Esterase Negative Urine RBC 20-50 H Urine WBC 0-2 Ur Epithelial Cells Negative Urine Crystals Negative Urine Bacteria Negative Urine Casts Negative Urine Mucus Negative Ur Culture Indicated? C&S Done As Ordered Urine Glucose Negative COVID-19 Source SARS-CoV-2 (PCR) Influenza Type A (PCR) Influenza Type B (PCR) RSV (PCR) 11/11/24 11/11/24 11:06 14:26 WBC 31.02 H* RBC 3.14 L Hgb 9.7 L D Hct 28.8 L MCV 92 MCH 30.9 MCHC 33.7 RDW 15.5 H Plt Count 144 MPV 12.0 H Immature Gran % Neutrophils % Band Neutrophils % Lymphocytes % Monocytes % Eosinophils % Basophils % Nucleated RBC % Absolute Neutrophils Absolute Lymphocytes Absolute Monocytes Absolute Eosinophils Absolute Basophils RBC Morphology PT INR APTT Fibrinogen VBG Lactate 3.1 H* Sodium 141 Potassium 3.0 L Chloride 108 H Carbon Dioxide 23.5 Anion Gap 9.5 BUN 7 Creatinine 1.0 Est GFR (CKD-EPI 2020) 81.69 Glucose 145 H Calcium 8.3 L Total Bilirubin 0.90 AST 18 ALT 10 L Alkaline Phosphatase 106 Total Protein 4.5 L Albumin 1.4 L Urine Color Urine Clarity Urine pH Ur Specific [place] Urine Protein Urine Ketones Urine Blood Urine Nitrite Urine Bilirubin Urine Urobilinogen Ur Leukocyte Esterase Urine RBC Urine WBC Ur Epithelial Cells Urine Crystals Urine Bacteria Urine Casts Urine Mucus Ur Culture Indicated? Urine Glucose COVID-19 Source Nasopharynx SARS-CoV-2 (PCR) Negative Influenza Type A (PCR) Negative Influenza Type B (PCR) Negative RSV (PCR) Negative
[2024-11-11] MEDS: Normal Saline 1,000 ML 175 ML IV ×2 (17:09→22:20)
--- NOTE | 2024-11-11 17:12 | PGE_ITS ---
Date of Service Date of service: 11/11/24 Time of Service: 17:12 Subjective Subjective Interval history since last seen: Late entry due to pace of care on service: This is a 24-year-old G1 now P1001 status post 39-week section performed this morning for arrest of labor. Ms. Lobo presented yesterday afternoon in active labor. Records indicate was complicated by limited assessment for gestational diabetes, excessive weight gain in , obesity in , and history of mild intermittent asthma. Records suggest Ms. Lobo was managed expectantly per patient request. She received an epidural later that evening. She underwent artificial rupture of membranes at midnight to a large amount of clear fluid and was subsequently augmented with Pitocin. Records suggest internal monitors both for tocometry as well as heart assessment were placed at the time of rupture. FSE appears to have been replaced at 2:45 AM, and by the records I understand the IUPC to have been removed at the same time. I note from 3:30 AM reports Pitocin was turned off due to a persistent category 2 tracing. Patient is also noted to have spiked a fever of 38.4 by the same note; 650 mg of Tylenol was administered orally, a second IV was placed, a fluid bolus was initiated, and 2 g of ampicillin as well as 120 mg of gentamicin were ordered for administration. I note from 5 AM suggests concern for arrest of labor and a discussion during which a decision was made to proceed with . Operative note suggests 900 mg of clindamycin was also administered at least 3 hours prior to proceeding to the OR. Per anesthesia, the patient's epidural was removed and replaced with spinal anesthesia for the procedure. The procedure was completed without issue, and an EBL of 600 mL was reported. Sometime during the 9:00 hour anesthesia presented to my office expressing concern that the patient was still requiring norepinephrine to maintain blood pressures. I went down and assessed the patient in person. Ms. Lobo was found resting comfortably without overt evidence of distress in the PACU. She was noted to be on 2 of Levophed with a MAP in the mid 60s; her heart rate was in the low 100s and she was afebrile. I received report that she had received 2 L of LR over the course of the last few hours leading up to her as well as 1700 cc of LR while in the OR. She denied any concerns for headache, lightheadedness, shortness of breath, chest pain, palpitations, nausea, pain, or any discomfort. Her abdomen was noted to be soft, nondistended, and her ruby dressing appeared clean. The uterine fundus favored the right side but was firm and below the umbilicus. Swelling in the extremities was minimal and without pitting, and no rashes were noted. Her vaginal bleeding was appropriate for postop and crede of the uterus was reassuring. Her blood pressure was noted to be too small for her and was exchanged for a larger cuff; blood pressures remained the same despite the switch. 500 cc bolus was initiated. CBC, CMP, lactic acid, COVID/flu swabs, blood cultures x 2, UA with urine culture, and baseline DIC labs were ordered for assessment. The hospitalist was also consulted at this time to assist with management of suspected sepsis and potential septic shock. Over the course of the processing of the labs patient was able to wean down to 1 of Levophed. However, a couple hours later I received feedback that the Levophed once again had to be increased to 4 in order to maintain pressures. Patient appeared stable from earlier when assessed at the bedside, but her labs were concerning for a white count of 31 (up from 18.96 on presentation) and her lactic acid was 2.9. She was also noticed to have a creatinine level of 1.1. A peripheral line was placed to accommodate the continued Levophed and an art line was initiated for enhanced accuracy in monitoring blood pressures however, urine output remained reassuring and appropriate. At this time we did not have an ICU bed a vailable and concerns were expressed to me by the staff regarding their comfort level continuing care for this patient at our facility. I updated both the patient and the family on the nature of her status and we discussed transfer of care to a higher level facility of which they were agreeable and interested. A call was made to [facility] and I spoke with Dr. Robb of [facility] as well as Dr. Mota of critical care to review the patient's case. In the process of preparing to speak with [facility], I was informed that an ICU bed had become available; therefore, the patient was transferred from PACU to ICU. In speaking with Dr. Robb and Dr. Mota they were concerned that a transfer of care at this point would be premature given the now availability of an ICU bed and they also expressed concern for the separation of mother and baby as they were uncertain of bed availability for the baby. We discussed the case together thoroughly, it was agreed that she would be monitored carefully here with the invitation to call back if any further concerns or evidence of decompensation arose. A repeat of her labs 3 hours after the first set was largely stable, though she was noted to have a drop in her hemoglobin from 11.7-9.7. Platelets also modestly decreased from 1 59-1 54. However, patient's bleeding and overall clinical status remained stable, therefore decision was made to continue mon itoring for for now with a repeat set of labs in another 3 hours. 5:00 labs have returned overall reassuring. White count is modestly downtrending from high of 31.69 now at 29.53. Lactic acid has down trended from a maximum of 3.1 now at 1.8. Creatinine has down trended from a maximum of 1.1 now at 0.8. Urine output remains reassuring. Hemoglobin has also modestly downtrended from 11.7 this morning to 9.7 as of 2 30-8.8 now at 5. However, platelets remain stable from the last draw in the low 140s. Patient assessed at bedside and is found resting comfortably. She again denies any concerning symptoms. Her abdomen is again noted to be soft nondistended. Her fundus appears to be firm and well below the umbilicus. Her bleeding is scant. Her ruby dressing still appears clean and there is no overt evidence of bruising. Her vitals are noted to be reassuring; maps were noted to be in the mid 60s to lower 70s for the duration of her assessment. Her heart rate has down trended and is currently in the 80s. Heart auscultation is without overt concerns. Respiration rate is appropriate; her breathing is nonlabored and lung sounds are clear. She has noted to have +1 nonpitting peripheral edema equal bilaterally. Patient continues to breast-feed without issue. Ms. Silvestre inquires about food. At this time I find her overall clinical status to be reassuring and trending in the correct direction. We discussed advancing her diet to a regular diet. Given her initial complications, we will continue antibiotics over the course the evening and reassess in the morning. Pharmacological anticoagulation scheduled to be initiated tomorrow morning, and a set of repeat labs will be collected. Dr. Macdonald's input is appreciated. Will assess for potential further advancement and stepdown in the morning. A call was made to [facility] to update them on her current condition. Objective Last Vital Signs Temp 97.7 F 11/11/24 14:32 Pulse 90 11/11/24 16:20 Resp 14 11/11/24 16:20 BP 93/48 L 11/11/24 16:16 Pulse Ox 95 11/11/24 16:20 Laboratory Results - last 24 hr 11/11/24 11/11/24 11/11/24 10:02 10:25 11:05 WBC 31.69 H* RBC 3.88 L Hgb 11.7 Hct 35.7 L MCV 92 MCH 30.2 MCHC 32.8 RDW 15.3 H Plt Count 159 MPV 12.3 H Immature Gran % See Differential Neutrophils % 66.0 Band Neutrophils % 27 Lymphocytes % 1.0 Monocytes % 4.0 Eosinophils % 0.0 Basophils % 0.0 Nucleated RBC % 0.0 Absolute Neutrophils 29.47 H Absolute Lymphocytes 0.32 L Absolute Monocytes 1.27 H Absolute Eosinophils 0.00 Absolute Basophils 0.00 RBC Morphology Normal PT 10.9 INR 1.1 APTT 28.3 Fibrinogen 463 H VBG Lactate 2.9 H* Sodium Cancelled 142 Potassium Cancelled 3.2 L Chloride Cancelled 106 Carbon Dioxide Cancelled 24.5 Anion Gap Cancelled 11.5 H BUN Cancelled 7 Creatinine Cancelled 1.1 H Est GFR (CKD-EPI 2020) Cancelled 72.86 Glucose Cancelled 134 H Calcium Cancelled 8.9 Total Bilirubin Cancelled 1.37 H AST Cancelled 23 ALT Cancelled 16 Alkaline Phosphatase Cancelled 133 H Total Protein Cancelled 5.5 L Albumin Cancelled 1.8 L Urine Color Yellow Urine Clarity Clear Urine pH 7.0 Ur Specific [place] 1.010 Urine Protein Trace Urine Ketones Negative Urine Blood Large H Urine Nitrite Negative Urine Bilirubin Negative Urine Urobilinogen 0.2 Ur Leukocyte Esterase Negative Urine RBC 20-50 H Urine WBC 0-2 Ur Epithelial Cells Negative Urine Crystals Negative Urine Bacteria Negative Urine Casts Negative Urine Mucus Negative Ur Culture Indicated? C&S Done As Ordered Urine Glucose Negative COVID-19 Source SARS-CoV-2 (PCR) Influenza Type A (PCR) Influenza Type B (PCR) RSV (PCR) 11/11/24 11/11/24 11:06 14:26 WBC 31.02 H* RBC 3.14 L Hgb 9.7 L D Hct 28.8 L MCV 92 MCH 30.9 MCHC 33.7 RDW 15.5 H Plt Count 144 MPV 12.0 H Immature Gran % Neutrophils % Band Neutrophils % Lymphocytes % Monocytes % Eosinophils % Basophils % Nucleated RBC % Absolute Neutrophils Absolute Lymphocytes Absolute Monocytes Absolute Eosinophils Absolute Basophils RBC Morphology PT INR APTT Fibrinogen VBG Lactate 3.1 H* Sodium 141 Potassium 3.0 L Chloride 108 H Carbon Dioxide 23.5 Anion Gap 9.5 BUN 7 Creatinine 1.0 Est GFR (CKD-EPI 2020) 81.69 Glucose 145 H Calcium 8.3 L Total Bilirubin 0.90 AST 18 ALT 10 L Alkaline Phosphatase 106 Total Protein 4.5 L Albumin 1.4 L Urine Color Urine Clarity Urine pH Ur Specific [place] Urine Protein Urine Ketones Urine Blood Urine Nitrite Urine Bilirubin Urine Urobilinogen Ur Leukocyte Esterase Urine RBC Urine WBC Ur Epithelial Cells Urine Crystals Urine Bacteria Urine Casts Urine Mucus Ur Culture Indicated? Urine Glucose COVID-19 Source Nasopharynx SARS-CoV-2 (PCR) Negative Influenza Type A (PCR) Negative Influenza Type B (PCR) Negative RSV (PCR) Negative Time Spent with Patient Time Spent with Patient: >50 minutes Time was spent: preparing to see the patient(eg.review tests), obtaining and/or reviewing separately otained hiistory, ordering medications,tests, procedures, referring, communicating with other health career guidance technician, indepentently interpreting results, counseling the patient, care coordination and other (Updating and counseling family)
[2024-11-11 17:13] LABS: Lactate 1.8 mmol/L (<or=2.0)
[2024-11-11 17:16] LABS: HCT 26.5 % (36.0-46.0); HGB 8.8 g/dL (11.2-15.7); MCH 30.2 pg (27.0-33.0); MCHC 33.2 % (32.0-36.0); MCV 91 fL (80-95); MPV 11.7 fL (8.0-11.0); Platelet Count 142 10^3/uL (130-400); RBC 2.91 10^6/uL (3.93-5.22); RDW 15.2 % (11.7-14.6); RDW-SD 50.3 fL
[2024-11-11 17:19] LABS: WBC 29.53 10^3/uL (4.4-10.8)
[2024-11-11 17:36] LABS: ALT 9 U/L (14-59); AST 18 U/L (15-37); Albumin 1.3 g/dL (3.4-5.0); Alkaline Phosphatase 98 U/L (46-116); Anion Gap 7.1 mmol/L (3-11); BUN 6 mg/dL (7-18); Bilirubin, Total 0.75 mg/dL (0.2-1.0); CO2 25.9 mmol/L (21.0-32.0); CREATININE 0.8 mg/dL (0.55-1.02); Calcium 8.1 mg/dL (8.5-10.1); Chloride 108 mmol/L (98-107); Estimated GFR 106.77 (mL/min/1.73m2); Glucose 114 mg/dL (74-106); Potassium 3.3 mmol/L (3.5-5.1); Sodium 141 mmol/L (136-145); Total Protein 4.2 g/dL (6.4-8.2)
--- NOTE | 2024-11-11 17:36 | W.ANESPOSTOP ---
Postoperative Evaluation Date, Time and Location Date Performed: 11/11/24 Time Performed: 16:45 Patient Location: Intensive Care Unit Vital Signs Most Recent Imported Vital Signs: Most Recent Vital Signs Temp Pulse Resp BP Pulse Ox 36.5 C 90 14 93/48 L 95 11/11/24 14:32 11/11/24 16:20 11/11/24 16:20 11/11/24 16:16 11/11/24 16:20 Pain Score Most Recent Pain Score: Most Recent Pain Score Pain Level 2 11/11/24 13:30 Assessment Mental Status: Awake (Alert & Oriented to Patient Baseline) Airway and Respiratory Function: Patent airway with normal (patient baseline) respiratory exam Cardiovascular Function: Hemodynamically Unstable (See Explanation) (See ICU documentation, weaned off norepi gtt, will continue to monitor. Dr. Mann and hospitalist management.) Hydration Status: Adequately Hydrated Nausea & Vomiting: No Nausea or Vomiting Pain: Pain is tolerable per patient Peripheral Nerve Block: Patient did not receive a nerve block Postoperative Comments:: Discussed care with RN team caring for patient and reviewed inthrathecal orders and interventions. Additionally, met with patient bedside, again reviewed the interventions/procedures from this morning. Patient has no further questions at this time, but will reach out if any arise.
[2024-11-11 18:07] LABS: Metamyelocytes % 1; Myelocytes % 1
--- NOTE | 2024-11-11 18:07 | CHAPLAIN ---
Dr. Palmer asked if I would visit with Nasir, saying she had offered banquet prep cook to Nasir and her partner De. After a long labor and , Nasir and De's daugher Taylor was born, and Nasir required monitoring in the ICU. Taylor is with De and her grandparents in the Center. I offered a prayer with Nasir and then went to the Center and offered a prayer with Taylor, De and the grandparents.
[2024-11-12] VITALS (50 sets, daily range): BP systolic 89–112; BP diastolic 55–72; PULSE 84–876; RESP 14–25; TEMP 36–37.1; O2SAT 91–100
[2024-11-12] MEDS: Normal Saline 1,000 ML 175 ML IV (03:23)
[2024-11-12] MEDS: AMPICILLIN SODIUM 2 GM in Normal Saline 100 ML IVPB ×2 (03:24→09:49)
[2024-11-12] MEDS: Normal Saline Flush 10 ML SYR IVP ×2 (05:28→20:17)
[2024-11-12] MEDS: CLINDAMYCIN 900 MG/50 ML BAG 50 MG IVPB (05:28)
[2024-11-12] MEDS: Enoxaparin 40 MG/0.4 ML SYR SC (05:31)
[2024-11-12 05:45] LABS: Abs Immature Grans 0.34 10^3/uL (0.0-0.06); HCT 26.1 % (36.0-46.0); HGB 8.7 g/dL (11.2-15.7); MCH 30.2 pg (27.0-33.0); MCHC 33.3 % (32.0-36.0); MCV 91 fL (80-95); MPV 12.2 fL (8.0-11.0); Platelet Count 137 10^3/uL (130-400); RBC 2.88 10^6/uL (3.93-5.22); RDW 15.4 % (11.7-14.6); RDW-SD 50.5 fL; WBC 21.42 10^3/uL (4.4-10.8)
[2024-11-12] MEDS: Acetaminophen 325 MG TAB 650 MG PO ×4 (05:48→22:05)
[2024-11-12 06:12] LABS: Absolute Eosinophil Count 0.21 10^3/uL (0.0-0.7); Absolute Neutrophil Count 17.14 10^3/uL (1.2-6.7); Diff Comment Manual Differential; Metamyelocytes % 2; Polychromasia Present
[2024-11-12 06:13] LABS: Absolute Lymphocyte Count 2.14 10^3/uL (1.2-3.4)
[2024-11-12 06:21] LABS: ALT 14 U/L (14-59); AST 22 U/L (15-37); Albumin 1.2 g/dL (3.4-5.0); Alkaline Phosphatase 85 U/L (46-116); Anion Gap 6.5 mmol/L (3-11); BUN 8 mg/dL (7-18); Bilirubin, Total 0.46 mg/dL (0.2-1.0); CO2 26.5 mmol/L (21.0-32.0); CREATININE 0.7 mg/dL (0.55-1.02); Calcium 7.8 mg/dL (8.5-10.1); Chloride 108 mmol/L (98-107); Estimated GFR 125.33 (mL/min/1.73m2); Glucose 75 mg/dL (74-106); Sodium 141 mmol/L (136-145); Total Protein 4.2 g/dL (6.4-8.2)
[2024-11-12 06:27] LABS: Potassium 2.8 mmol/L (3.5-5.1)
[2024-11-12] MEDS: POTASSIUM CHLORIDE 10 MEQ/100 ML BAG 100 MEQ IV_INF ×2 (08:28→09:32)
--- NOTE | 2024-11-12 08:51 | PDOC.CMIN ---
Date of service: 11/12/24 Time of Service: 08:51 Care Management Initial Assmt Initial Assessment Reason for Hospitalization: labor, s/p C/S, sepsis Functional Status/Living Situation Patient Presentation: Nasir was admitted on 11/10 to OB for labor. Her labor did not progress, and she was brought to C/S. Prior to the C/S, Nasir did receive IV abx. Reportedly, the C/S went well, viable full-term girl. In recovery, Nasir was unable to wean from her blood pressure supports, was noted to have increased WBC, and was transferred to ICU. Nasir is now off of her pressure supports, but remains on IVF at 50cc/h. Nasir was offered a regular diet this morning, and tolerated that well. Town of Residence: [place] Significant Other/Family: Local (parents, partner- De) Instrumental Activities of Daily Living (ADLs): Independent Medications Medication Management: No Issues/Barriers identified Advance Directives Advance Directives: Do you have an Advance Directive: N 07/05/24 12:52 AD On File at [facility]: N 07/05/24 12:52 Date Asked 11/10/24 11/11/24 03:58 AD Date Reviewed COLST On File at [facility] COLST Date Scanned Code Status Resuscitation Status Full Code Insurance Coverage/Financial Issues Insurance: BC/BS of [place] Care Team Visit Care Team Role Provider Type Mary Soria Primary Care Provider OSTEOPATHIC DOCTOR Den Macdonald, DO Other Providers [facility] STAFF PHYSICIAN Miley Mann, DO Admit Provider OSTEOPATHIC DOCTOR Attending Provider Discharge Potential Discharge Needs: Other (OB f/u) Anticipated Barriers to Discharge: None Identified Patient/Family Education Needs: Review discharge instructions, discuss Ask Me Three Transportation: Private vehicle Plan: Anticipate that Nasir will be discharged home with no new orders. She will have close f/u with her OB and continue per her plan of care. She will transport in a private vehicle. CM will continue to follow. Social Determinants of Health Screening Social Determinants of Health last assessed: 11/12/24 Will the Patient Participate in the Screening?: Yes Do you worry about having a steady place to live?: no Problems where you live: no known problems In the past 12 months, have you had to go without electric, gas, oil or water in your home?: no Have you or anyone in your house had to go without enough food to eat?: no Has lack of transportation kept you from medical appointments or from doing things needed for daily living?: no Has anyone in your life made you feel unsafe or unsupported?: no How hard is it for you to pay for the very basics like food, housing, medical care, and heating? Would you say it is:: Somewhat hard Do you want help finding or keeping work or a job?: I do not need or want help If for any reason you need help with day-to-day activities such as bathing, preparing meals, shopping, managing finances, etc., do you get the help you need?: I don?t need any help How often do you feel lonely or isolated from those around you?: Never Do you speak a language other than Romanian at home?: No Does the patient want assistance with any of the above?: No Health Related Social Needs Health related social needs: problems related to housing/economic circumstances (Z59.89) PFSH All Active Problems (Updated 11/11/24 @ 15:44 by Miley Mann DO) Sepsis (Acute) delivery delivered (Acute) Arrest of dilation, delivered, current hospitalization (Acute) Abnormal labor (Acute) Chorioamnionitis (Acute) Category II heart rate tracing during labor and delivery (Acute) Slow progress in first stage of labor (Acute) Elevated glucose level (Acute) elevated fasting of 99 on 3 hr GTT, other levels nml (Acute) Medical History (Updated 11/11/24 @ 15:44 by Miley Mann DO) Normal labor Missed menses Bleeding in early Fundal height high for dates History of asthma Family History (Updated 04/29/24 @ 13:08 by Ida Dailey CNM) Maternal Grandfather Kidney failure Fatty liver Mother Asthma Cholecystitis Social History Smoking/Tobacco Use Status: Never Smoking risk assessment performed?: Yes Alcohol Intake: never Substance use type: does not use Housing: house History History 1 Para 0 Hx # Term Pregnancies 0 Multiple births 0 Hx # Pregnancies 0 Ectopic pregnancies 0 AB induced 0 Hx Number of Living Children 0 AB spontaneous 0 Readmission Within the Past 30 Days Yes or No: No
--- NOTE | 2024-11-12 11:43 | PGE_ITS ---
Date of Service Date of service: 11/12/24 Time of Service: 11:43 Subjective Subjective Interval history since last seen: 24 yo G1 now P1001 s/p PLTCS from AM of 11/11/2024 post-op day 1. Patient was seen initially this AM in the ICU. She reported feeling well. Her pain was well controlled. She denied concerns for nausea / vomiting, light-headedness, chest pain, dizziness. Richards was still in place and UOP was appropriate. She is not yet ambulating. She tolerated PO dinner and breakfast without issue. She is but has not breastfed all night. Exam Narrative Exam Narrative: General: Well nourished; comfortable Psych: Pleasant, calm, appropriate Neuro: Alert and oriented; no overt evidence of deficits Pulm: Breathing non-labored (Rounded with Hospitalist who auscaltated heart and lungs) Abdomen: Soft, non-distended. Elkin dressing intact, working, and clean : Appropriate lochia Extremities: SCD's in place. +1 peripheral, non-pitting edema noted equally bilaterally Objective Last Vital Signs Temp 97.5 F L 11/12/24 04:50 Pulse 92 H 11/12/24 06:20 Resp 15 11/12/24 06:20 BP 94/68 L 11/11/24 19:16 Pulse Ox 93 11/12/24 06:20 Laboratory Results - last 24 hr 11/11/24 11/11/24 11/11/24 10:25 11:05 11:06 WBC RBC Hgb Hct MCV MCH MCHC RDW Plt Count MPV Immature Gran % Neutrophils % Lymphocytes % Monocytes % Eosinophils % Basophils % Metamyelocytes % 1 Myelocytes % 1 Nucleated RBC % Absolute Neutrophils Absolute Lymphocytes Absolute Monocytes Absolute Eosinophils Absolute Basophils RBC Morphology Polychromasia Fibrinogen 463 H VBG Lactate Sodium 142 Potassium 3.2 L Chloride 106 Carbon Dioxide 24.5 Anion Gap 11.5 H BUN 7 Creatinine 1.1 H Est GFR (CKD-EPI 2020) 72.86 Glucose 134 H Calcium 8.9 Total Bilirubin 1.37 H AST 23 ALT 16 Alkaline Phosphatase 133 H Total Protein 5.5 L Albumin 1.8 L Urine RBC 20-50 H Urine WBC 0-2 Ur Epithelial Cells Negative Urine Crystals Negative Urine Bacteria Negative Urine Casts Negative Urine Mucus Negative Ur Culture Indicated? C&S Done As Ordered COVID-19 Source Nasopharynx SARS-CoV-2 (PCR) Negative Influenza Type A (PCR) Negative Influenza Type B (PCR) Negative RSV (PCR) Negative 11/11/24 11/11/24 11/12/24 14:26 17:05 05:20 WBC 31.02 H* 29.53 H* 21.42 H RBC 3.14 L 2.91 L 2.88 L Hgb 9.7 L D 8.8 L 8.7 L Hct 28.8 L 26.5 L 26.1 L MCV 92 91 91 MCH 30.9 30.2 30.2 MCHC 33.7 33.2 33.3 RDW 15.5 H 15.2 H 15.4 H Plt Count 144 142 137 MPV 12.0 H 11.7 H 12.2 H Immature Gran % 0.0 Neutrophils % 80.0 Lymphocytes % 10.0 Monocytes % 7.0 Eosinophils % 1.0 Basophils % 0.0 Metamyelocytes % 2 Myelocytes % Nucleated RBC % 0.0 Absolute Neutrophils 17.14 H Absolute Lymphocytes 2.14 Absolute Monocytes 1.50 H Absolute Eosinophils 0.21 Absolute Basophils 0.00 RBC Morphology See Below Polychromasia Present Fibrinogen VBG Lactate 3.1 H* 1.8 Sodium 141 141 141 Potassium 3.0 L 3.3 L 2.8 L* Chloride 108 H 108 H 108 H Carbon Dioxide 23.5 25.9 26.5 Anion Gap 9.5 7.1 6.5 BUN 7 6 L 8 Creatinine 1.0 0.8 0.7 Est GFR (CKD-EPI 2020) 81.69 106.77 125.33 Glucose 145 H 114 H 75 Calcium 8.3 L 8.1 L 7.8 L Total Bilirubin 0.90 0.75 0.46 AST 18 18 22 ALT 10 L 9 L 14 Alkaline Phosphatase 106 98 85 Total Protein 4.5 L 4.2 L 4.2 L Albumin 1.4 L 1.3 L 1.2 L Urine RBC Urine WBC Ur Epithelial Cells Urine Crystals Urine Bacteria Urine Casts Urine Mucus Ur Culture Indicated? COVID-19 Source SARS-CoV-2 (PCR) Influenza Type A (PCR) Influenza Type B (PCR) RSV (PCR) Objective Narrative Objective Narrative: 24 yo G21 now P1001 s/p 39 wk PLTCS from 11/11 AM; EBL 600 - Rh+ / Rub I / GBS neg - Arrived in active labor. Did receive epidural. Did have internals placed with FSE replaced once. AROM to clear fluid at midnight. Augmented with Pitocin. for arrest of descent. - Pregnacy complicated by limited assessment for GDM, maternal obesity, excessive weight gain in , and history of mild-intermittent asthma - Labor and delivery course complicated by arrest of labor, chorioamnionitis (dx based on tachycardia in the setting of fever), and sepsis with septic shock - ; breast pump available at bedside - Contraception: pending - Lochia appropriate - Not yet ambulating - Perineal care per protocol S/P 39 week primary low transverse section - 3 cm broad ligament fibroid noted near left cornua - Tolerating a regular diet - Richards removed this AM; has not urinated, yet - Sat at bedside this AM without issue; continue with progressive ambulation. Staff encouraged to assist patient to rocking chair once settled on L&D - Incision site covered with ELKIN and clean. ELKIN scant output - Pain well controlled on Tylenol and Toradol. Also had Percocet's available but not using. Switched this AM to Tylenol, Motrin, and Roxicodone 5 mg q4 hrs prn. Discussed addictive potential of narcotic and encouraged conservative usage. Acute anemia - Hgb: 13,5 (admission), 11.7 (immediately post-op), 9.7, 8.8, 8.7 - Plts: 178 (admission), 159 (immediately post-op), 144, 142, 137 - Patient denies any s/sx - 325 mg PO ferrous sulfate daily Sepsis and septic shock 2/2 Intrapartum Intaamniotic Infection; resolving - Patient requiring norepi immediately following ; unable to fully ween. Admitted to ICU for continuation of norepi and close monitoring. Did not require any further vasopressor while in ICU. ART line found blood pressures consistently a little higher than cuff readings with reassuring MAPs overnight. ART line d/c'd this AM. - Last fever: 11/11 at 4:49 am - Tmax: 101.1 F - Lactic acid: 2.9, 3.1, 1.8 - WBC: 18.96, 31.69, 31.02, 29.53, 21.42 - Cr: 1.1, 1.0, 0.8, 0.7; UOP has maintained within appropriate ranges - Antibiotics: IV Ampicillin / Gentamycin (1/5 mg/kg q8) / Clinda x24+ hours; also recieved Ancef and Azithromycin at the time of . - Blood cultures: Negative for growth x 24 hours - UCx: Negative for growth x 24 hours Hypokalemia - K: 3.2, 3.0 3.3, 2.8, 20 mEq IV K+ Current IV sites: - 2 peripheral IV's in right hand - 1 peripheral IV in left hand - 1 midline in right arm - ART line in right hand; appeared to be leaking as of this AM, therefore d/c'd - Patient is right handed DVT prophylaxis - Progressive ambulation - SCD's while in bed - 40 mg IM Lovenox qd - - - - - - - - - - - - - - - - - - 11/12/2024 (Mackenzie): Patient tolerated sitting at bedside well without symptoms in the ICU. Tolerating regular diet. Receiving IV repletion of K per Hospitalist; recommendations appreciated. UOP has been more than adequate and reassuring. Vitals remained stable overnight (BP's 80's - 90's / 40 - 60's on with MAPs in low to mid 60's by cuff; however, ART readings consistently measuring approximately 10-15 mmHg higher than cuff readings with very reassuring MAPs in the mid 60's to lower 70's) and patient remains asymptomatic. Has not required pressors for duration of ICU stay and has been over 24 hours without fever. Creatinine normalized and stable. UOP remains very reassuring. Anemia stabilized and patient is without subjective symptoms. Transferred to floor this AM. Richards removed and switched to progressive ambulation. IS placed at patient's bedside and I personally instructed the patient on it's use. Abdominal binder placed. Encouraged RN's to assist patient to rocking chair this AM. Continue q4 hours; breast pump provided at patient's bedside. Strongly encouraged healthy fluid intake. Vitals to be done q1 hour x2 on the floor. Assuming stable and reassuring, will space to q2 hours x2, then to q4 hours. Continue I's/O's q shift. 2 of the four IV's d/c'd (Midline will be maintained as well as left peripheral; but two right-hand peripherals d/c'd given they are the oldest and she is right-handed. Lines flushed appropriately and RN's instructed to saline lock). IV antibiotics switched to PO (Augmentin and Metronidazole both BID) for at least 24 hours. Diflucan ordered due to heavy antibiotic load. PO iron added for anemia. Of note, baby is undergoing sepsis wo rk up and bili levels have been appropriate. Mother's O2 sats have been hovering between 94 and 98% on room air; she denies any chest pain or SOB. Her breathing is not labored and vitals are now appropriate for post-op. Lung sounds have been reassuring without evidence of pathology. Incentive spirometry initiated and will continue to monitor. All of the above discussed as part of group rounding at patient's bedside with family involved this afternoon on labor and delivery. No further labs planned unless there is a change in clinical status. *DISCUSS CONTRACEPTIVE PLANNING WITH PATIENT Time Spent with Patient Time Spent with Patient: >50 minutes Time was spent: preparing to see the patient(eg.review tests), obtaining and/or reviewing separately otained hiistory, ordering medications,tests, procedures, referring, communicating with other health childcare administrator, indepentently interpreting results, counseling the patient, care coordination and other (counseling family and following status of baby)
--- NOTE | 2024-11-12 11:56 | PGE_ITS ---
Date of Service Date of service: 11/12/24 Time of Service: 11:56 Assessment and Plan Assessment and plan (1) Sepsis: Status: Acute Assessment and plan: - patient meets criteria for severe sepsis (WBC, HR, hypotension) - chorioamnionitis as suspected source - on NS @ 175cc/hr - has not required pressors for BP support - abx as discussed below - of note, alexander appears to have infiltrated, ok to remove this (2) Chorioamnionitis: Status: Acute Assessment and plan: - primary service started ampicillin, gent, and clinda trent-op as appropriate, can continue this for now - check blood, urine, cultures still pending - continue to monitor leukocytosis, has improved since yesterday - d/w Dr. Angela, as patient seems to be much improved and off pressors, all in agreement to transfer patient back to birthing center. will sign off, please call if patient has any further instability (3) delivery delivered: Status: Acute Assessment and plan: post-op care per primary service DVT ppx with Lovenox Subjective Subjective Interval history since last seen: Seen and examined this morning. Patient awake, alert. Offers no complaint, denies CP/SOB/RILEY. BPs stil soft but patient has not required any pressors overnight. Last documented . Remains afebrile and leukocytosis has improved. Exam Const General: cooperative, healthy appearing, comfortable and no acute distress Orientation: alert, awake and oriented x3 Chest Chest: normal inspection of the chest Resp Effort & Inspection: normal respiratory effort and no stridor Auscultation: clear to auscultation bilaterally, no rales, no rhonchi and no wheezes Cardio Rate: regular rate Rhythm: regular rhythm Heart Sounds: S1 normal and S2 normal GI Inspection: normal to inspection Palpation: soft Auscultation: normal bowel sounds Skin General skin exam: no rashes or lesions noted Neuro Cranial Nerves: CN's II-XI intact bilaterally Objective Last Vital Signs Temp 36.4 C L 11/12/24 04:50 Pulse 92 H 11/12/24 06:20 Resp 15 11/12/24 06:20 BP 94/68 L 11/11/24 19:16 Pulse Ox 93 11/12/24 06:20 Laboratory Results - last 24 hr 11/11/24 11/11/24 11/11/24 11:05 11:06 14:26 WBC 31.02 H* RBC 3.14 L Hgb 9.7 L D Hct 28.8 L MCV 92 MCH 30.9 MCHC 33.7 RDW 15.5 H Plt Count 144 MPV 12.0 H Immature Gran % Neutrophils % Lymphocytes % Monocytes % Eosinophils % Basophils % Metamyelocytes % 1 Myelocytes % 1 Nucleated RBC % Absolute Neutrophils Absolute Lymphocytes Absolute Monocytes Absolute Eosinophils Absolute Basophils RBC Morphology Polychromasia Fibrinogen 463 H VBG Lactate 3.1 H* Sodium 141 Potassium 3.0 L Chloride 108 H Carbon Dioxide 23.5 Anion Gap 9.5 BUN 7 Creatinine 1.0 Est GFR (CKD-EPI 2020) 81.69 Glucose 145 H Calcium 8.3 L Total Bilirubin 0.90 AST 18 ALT 10 L Alkaline Phosphatase 106 Total Protein 4.5 L Albumin 1.4 L COVID-19 Source Nasopharynx SARS-CoV-2 (PCR) Negative Influenza Type A (PCR) Negative Influenza Type B (PCR) Negative RSV (PCR) Negative 11/11/24 11/12/24 17:05 05:20 WBC 29.53 H* 21.42 H RBC 2.91 L 2.88 L Hgb 8.8 L 8.7 L Hct 26.5 L 26.1 L MCV 91 91 MCH 30.2 30.2 MCHC 33.2 33.3 RDW 15.2 H 15.4 H Plt Count 142 137 MPV 11.7 H 12.2 H Immature Gran % 0.0 Neutrophils % 80.0 Lymphocytes % 10.0 Monocytes % 7.0 Eosinophils % 1.0 Basophils % 0.0 Metamyelocytes % 2 Myelocytes % Nucleated RBC % 0.0 Absolute Neutrophils 17.14 H Absolute Lymphocytes 2.14 Absolute Monocytes 1.50 H Absolute Eosinophils 0.21 Absolute Basophils 0.00 RBC Morphology See Below Polychromasia Present Fibrinogen VBG Lactate 1.8 Sodium 141 141 Potassium 3.3 L 2.8 L* Chloride 108 H 108 H Carbon Dioxide 25.9 26.5 Anion Gap 7.1 6.5 BUN 6 L 8 Creatinine 0.8 0.7 Est GFR (CKD-EPI 2020) 106.77 125.33 Glucose 114 H 75 Calcium 8.1 L 7.8 L Total Bilirubin 0.75 0.46 AST 18 22 ALT 9 L 14 Alkaline Phosphatase 98 85 Total Protein 4.2 L 4.2 L Albumin 1.3 L 1.2 L COVID-19 Source SARS-CoV-2 (PCR) Influenza Type A (PCR) Influenza Type B (PCR) RSV (PCR) Time Spent with Patient Time Spent with Patient: <25 minutes Time was spent: referring, communicating with other health respiratory care assistant, indepentently interpreting results and counseling the patient
--- NOTE | 2024-11-12 12:16 | PDOC.CMPRO ---
Care Management Progress Note Progress Note Text Progress Note Text: Nasir was admitted on 11/10 to OB for labor. Her labor did not progress, and she was brought to C/S. Prior to the C/S, Nasir did receive IV abx. Reportedly, the C/S went well, viable full-term girl. In recovery, Nasir was unable to wean from her blood pressure supports, was noted to have increased WBC, and was transferred to ICU. Nasir is now off of her pressure supports, but remains on IVF at 50cc/h. Nasir was offered a regular diet this morning, and tolerated that well. Nasir was transferred back to the post- floor before CM could meet with her today. Social Determinants of Health Screening Social Determinants of Health last assessed: 11/12/24 Will the Patient Participate in the Screening?: Yes Do you worry about having a steady place to live?: no Problems where you live: no known problems In the past 12 months, have you had to go without electric, gas, oil or water in your home?: no Have you or anyone in your house had to go without enough food to eat?: no Has lack of transportation kept you from medical appointments or from doing things needed for daily living?: no Has anyone in your life made you feel unsafe or unsupported?: no How hard is it for you to pay for the very basics like food, housing, medical care, and heating? Would you say it is:: Somewhat hard Do you want help finding or keeping work or a job?: I do not need or want help If for any reason you need help with day-to-day activities such as bathing, preparing meals, shopping, managing finances, etc., do you get the help you need?: I don?t need any help How often do you feel lonely or isolated from those around you?: Never Do you speak a language other than [place]ish at home?: No Does the patient want assistance with any of the above?: No Health Related Social Needs Health related social needs: problems related to housing/economic circumstances (Z59.89)
[2024-11-12] MEDS: Ibuprofen 600 MG TAB PO ×2 (13:45→20:16)
[2024-11-12] MEDS: oxyCODONE 5 MG TAB PO ×3 (13:45→22:05)
[2024-11-12] MEDS: Ferrous Sulfate 325 MG TAB PO (16:05)
[2024-11-12] MEDS: Docusate Sodium 100 MG CAP PO ×2 (16:05→20:16)
[2024-11-12] MEDS: Potassium Chloride 20 MEQ TABCR 40 MEQ PO ×2 (16:05→20:16)
[2024-11-12] MEDS: Fluconazole 150 MG TAB PO (18:25)
[2024-11-12] MEDS: Lactobacillus Acidophilus CAP 1 CAP PO (20:16)
[2024-11-12] MEDS: metroNIDAZOLE 500 MG TAB PO (20:16)
[2024-11-12] MEDS: Amoxicillin 500/Clav. 125 TAB PO (20:16)
[2024-11-13] MEDS: oxyCODONE 5 MG TAB PO ×3 (02:08→15:00)
[2024-11-13] MEDS: Acetaminophen 325 MG TAB 650 MG PO ×4 (02:09→21:27)
[2024-11-13] MEDS: Ibuprofen 600 MG TAB PO ×4 (02:09→21:22)
[2024-11-13] MEDS: Enoxaparin 40 MG/0.4 ML SYR SC (06:38)
[2024-11-13] MEDS: Amoxicillin 500/Clav. 125 TAB PO ×2 (08:29→21:21)
[2024-11-13] MEDS: Ferrous Sulfate 325 MG TAB PO (08:29)
[2024-11-13] MEDS: metroNIDAZOLE 500 MG TAB PO ×2 (08:30→21:25)
[2024-11-13] MEDS: Lactobacillus Acidophilus CAP 1 CAP PO ×2 (08:30→21:25)
[2024-11-13] MEDS: Normal Saline Flush 10 ML SYR IVP ×2 (08:30→08:31)
[2024-11-13 10:00] VITALS: BP 106/65; PULSE 88; RESP 16; TEMP 36.5; O2SAT 98
[2024-11-13 13:30] VITALS: BP 105/69; PULSE 87; RESP 16; TEMP 36.5; O2SAT 98
--- NOTE | 2024-11-13 16:03 | W.PM.PROGNOT ---
Date of Service Date of service: 11/13/24 Time of Service: 10:00 Assessment and Plan Assessment and plan (1) : Status: Acute (2) delivery delivered: Status: Acute (3) Arrest of dilation, delivered, current hospitalization: Status: Acute (4) Chorioamnionitis: Status: Resolved (5) Sepsis: Status: Resolved (6) Acute anemia: Status: Acute Subjective Subjective Interval history since last seen: 24 yo G1 now P1001 s/p 39 wk PLTCS from 11/11/2024 AM, EBL 600 cc's, complicated by sepsis. POD 2-3. She is found sitting up in a chair resting well. Pain is well controlled. She is ambulating appropriately. She is eating, urinating, and without issue. She is passing gas but no bowel movement, yet; she denies nausea / vomiting and is tolerating a regular diet. Of note, patient states she does not usually have BM's daily at baseline. Her lochia has been dissipating and is appropriate. She denies s/sx of hemodynamically instability and requests a shower. Exam Const General: cooperative and healthy appearing Nutritional Appearance: well nourished Orientation: alert and awake HENMT Head: normocephalic Resp Effort & Inspection: normal respiratory effort GI Inspection: other (soft, non-distended. Incision is covered with still-clean ELKIN dressing) Skin General skin exam: no rashes or lesions noted Neuro General: patient alert and patient awake Extrem General: normal to inspection (+1 peripheral edema equal bilaterally) Psych Appearance: well kempt Mental Status: mental status grossly normal Affect: normal affect Objective Last Vital Signs Temp 97.7 F 11/13/24 13:30 Pulse 87 11/13/24 13:30 Resp 16 11/13/24 13:30 BP 105/69 11/13/24 13:30 Pulse Ox 98 11/13/24 13:30 Objective Narrative Objective Narrative: 24 yo G21 now P1001 s/p 39 wk PLTCS from 11/11 AM; EBL 600 - Rh+ / Rub I / GBS neg - Arrived in active labor. Did receive epidural. Did have internals placed with FSE replaced once. AROM to clear fluid at midnight. Augmented with Pitocin. for arrest of descent. - Pregnacy complicated by limited assessment for GDM, maternal obesity, excessive weight gain in , and history of mild-intermittent asthma - Labor and delivery course complicated by arrest of labor, chorioamnionitis (dx based on tachycardia in the setting of fever), and sepsis with septic shock - ; breast pump available at bedside - Contraception: Uncertain. Discussed options and encouraged consideration. - Lochia appropriate and decreasing - Ambulating appropriately - Perineal care per protocol S/P 39 week primary low transverse section - 3 cm broad ligament fibroid noted near left cornua - Tolerating a regular diet - Urinating without issue - Ambulating appropriately - Incision site covered with ELKIN and clean. ELKIN scant output - Passing flatus; no BM, yet - Pain well controlled on Tylenol, Motrin 600 q6, and Seema 5mg q4. Discussed addictive potential of narcotic and encouraged conservative usage. Acute anemia - Hgb: 13,5 (admission), 11.7 (immediately post-op), 9.7, 8.8, 8.7 - Plts: 178 (admission), 159 (immediately post-op), 144, 142, 137 - Patient denies any s/sx - 325 mg PO ferrous sulfate daily Sepsis and septic shock 2/2 Intrapartum Intaamniotic Infection; resolved - Patient requiring norepi immediately following ; unable to fully ween. Admitted to ICU for continuation of norepi and close monitoring. Did not require any further vasopressor while in ICU. Stepped down from ICU to L&D floor on 3/1 AM. - Last fever: 11/11 at 4:49 am - Tmax: 101.1 F - Lactic acid: 2.9, 3.1, 1.8 - WBC: 18.96, 31.69, 31.02, 29.53, 21.42 - Cr: 1.1, 1.0, 0.8, 0.7; UOP has maintained within appropriate ranges - Antibiotics: S/P IV Ampicillin / Gentamycin (1/5 mg/kg q8) / Clinda x24+ hours; also recieved Ancef and Azithromycin at the time of . Currently on Augmentin 500 BID and Metronidazole BID; d/c'd 3/2 AM - Blood cultures: Negative for growth x 48 hours - UCx: Negative for growth x 48 hours Hypokalemia - K: 3.2, 3.0 3.3, 2.8, 20 mEq IV K+ - No symptoms Current IV sites: <del>-</del> <del>2</del> <del>peripheral</del> <del>IV's</del> <del>in</del> <del>right</del> <del>hand</del> <del>d/c'd</del> <del>3</del> - 1 peripheral IV in left hand <del>-</del> <del>1</del> <del>midline</del> <del>in</del> <del>right</del> <del>arm</del> <del>d/c'd</del> <del>3/</del> <del>-</del> <del>ART</del> <del>line</del> <del>in</del> <del>right</del> <del>hand</del> <del>d/c'd</del> <del>11/12</del> - Patient is right handed DVT prophylaxis - Continued ambulation - SCD's while in bed - 40 mg IM Lovenox qd - - - - - - - - - - - - - - - - - - 11/12/2024 (Mackenzie): Patient tolerated sitting at bedside well without symptoms in the ICU. Tolerating regular diet. Receiving IV repletion of K per Hospitalist; recommendations appreciated. UOP has been more than adequate and reassuring. Vitals remained stable overnight (BP's 80's - 90's / 40 - 60's on with MAPs in low to mid 60's by cuff; however, ART readings consistently measuring approximately 10-15 mmHg higher than cuff readings with very reassuring MAPs in the mid 60's to lower 70's) and patient remains asymptomatic. Has not required pressors for duration of ICU stay and has been over 24 hours without fever. Creatinine normalized and stable. UOP remains very reassuring. Anemia stabilized and patient is without subjective symptoms. Transferred to floor this AM. Richards removed and switched to progressive ambulation. IS placed at patient's bedside and I personally instructed the patient on it's use. Abdominal binder placed. Encouraged RN's to assist patient to rocking chair this AM. Continue q4 hours; breast pump provided at patient's bedside. Strongly encouraged healthy fluid intake. Vitals to be done q1 hour x2 on the floor. Assuming stable and reassuring, will space to q2 hours x2, then to q4 hours. Continue I's/O's q shift. 2 of the four IV's d/c'd (Midline will be maintained as well as left peripheral; but two right-hand peripherals d/c'd given they are the oldest and she is right-handed. Lines flushed appropriately and RN's instructed to saline lock). IV antibiotics switched to PO (Augmentin and Metronidazole both BID) for at least 24 hours. Diflucan ordered due to heavy antibiotic load. PO iron added for anemia. Of note, baby is undergoing sepsis work up and bili levels have been appropriate. Mother's O2 sats have been hovering between 94 and 98% on room air; she denies any chest pain or SOB. Her breathing is not labored and vitals are now appropriate for post-op. Lung sounds have been reassuring without evidence of pathology. Incentive spirometry initiated and will continue to monitor. All of the above discussed as part of group rounding at patient's bedside with family involved this afternoon on labor and delivery. No further labs planned unless there is a change in clinical status. 11/13/2024 (Adánkaiden): Patient reports feeling better, today. She is found resting comfortably in her chair. No fevers overnight. SO2 sat has remained 99-100 on RA. ELKIN dressing is still in place with scant output. She is urinating without issue. Has not yet had a bowel movement, but is passing flatus and tolerating a regular diet; patient states she does not BM on a daily basis at baseline. Continue Colace, ambulating, and encouraged increasing fiber / hydration. Pain is appropriately controlled on Tylenol, Motrin, and Roxicodone. Emphasized, again, today, the addictive potential and encouraged conservtive use of narcotic. Discussed contraception; uncertain as of yet. is going well. All cultures continue to return negative for growth. Discussed d/c'ing PO antibiotic today and monitoring overnight. Requests a shower; ok to take a shower. Discussed pelvic floor exercises. Will d/c midline IV site. Will maintain left peripheral for now, but will consider removal this evening if she remains reassuring. Time Spent with Patient Time Spent with Patient: 35-49 minutes Time was spent: preparing to see the patient(eg.review tests), obtaining and/or reviewing separately otained hiistory, ordering medications,tests, procedures, indepentently interpreting results, counseling the patient and care coordination
[2024-11-13 20:25] VITALS: BP 110/75; PULSE 78; RESP 18; TEMP 37.2
[2024-11-13 21:30] VITALS: BP 113/73; PULSE 79; RESP 16; TEMP 36.5; O2SAT 98
[2024-11-14 02:20] VITALS: BP 109/72; PULSE 82; RESP 18; TEMP 36.7
[2024-11-14] MEDS: Ibuprofen 600 MG TAB PO ×2 (05:00→10:30)
[2024-11-14] MEDS: Acetaminophen 325 MG TAB 650 MG PO ×3 (05:00→15:15)
[2024-11-14] MEDS: Enoxaparin 40 MG/0.4 ML SYR SC (05:50)
[2024-11-14 06:00] VITALS: BP 129/73; PULSE 71; RESP 18; TEMP 36.6
[2024-11-14 07:45] VITALS: BP 113/67; PULSE 77; RESP 18; TEMP 36.6; O2SAT 98
--- NOTE | 2024-11-14 08:46 | DSE_ITS ---
Date of service: 11/14/24 Time of Service: 08:46 DS: Diagnosis Discharge Diagnosis (1) : Status: Acute (2) delivery delivered: Status: Acute Asessment and Plan: S/P 39 week primary low transverse section (3) Acute anemia: Status: Acute (4) Chorioamnionitis: Status: Resolved (5) Sepsis: Status: Resolved (6) Arrest of dilation, delivered, current hospitalization: Status: Acute Discharge Plan Disposition Patient Disposition: Home Condition: Good Discharge Details Admit Date/Time: 11/10/24 11:45 Admit Provider: Miley Mann Attending Provider: Miley Mann Primary Care Provider: Mary Soria Hospital Course Hospital Course: 24 yo G1 now P1001 presented in active labor at 39 weeks on 11/10/2024. She was expectantly managed by the midwifery group until she began to make some change, at which point, her water was broken (just past midnight on 11/11/2024). She recieved an epidural and was augmented with Pitocin. Over the course of her labor, she developed concerns for chorioamnionitis based on fevers and persistent tachycardia. She was initiated on Ampicillin, Gentamycin, and Clindamycin. She labor ultimately arrested at 8 cm, and she was taken for section which was performed without issue (baby girl, Eliza). Following the section anesthesia had difficulty weaning the patient off of pressors due to low blood pressures and it was suspected that the patient had entered septic shock. Sepsis protcol was initiated and an attempt was made to have the patient transferred to [facility] due to a lack of ICU bed; however, in the midst of arranging the transfer, a bed opened, and she was therefore transferred to ICU. She was able to be weaned off of the pressors and ultimately turned around in the ICU. The following day she returned to the L&D floor where she made a sexton and full recovery. Of note, her blood cultures were negative for growth over 48 hours and urine culture was also negative. She was initiated on PO iron for acute anemia following her . This morning she is found doing very well. She is ambulating, urinating, and eating all without issue. Her pain is well controlled on Tylenol, Motrin, and Roxicodone. Lochia is appropriate. She has made a full recovery from her sepsis. She was counseled on contraceptive options and is still uncertain what she would like. She was provided with information. She was discharged with instructions for close follow up. Home Meds and New Rx's Prescriptions: New ferrous sulfate 325 mg (65 mg iron) Tablet 325 mg PO DAILY 30 Days Qty: 30 0RF docusate sodium [Colace] 100 mg Capsule 100 mg PO TID PRN PRN10 Days Qty: 20 0RF ibuprofen 600 mg Tablet 600 mg PO Q6H PRN PRN30 Days Qty: 30 0RF oxycodone 5 mg Tablet 5 mg PO Q6H PRN PRN5 Days Qty: 15 0RF Lactobacillus acidophilus 500 million cell Capsule 500 mmu cells PO BID 30 Days Qty: 60 0RF Continued magnesium 200 mg tablet 400 mg PO DAILY [id number] 6-dha 27 mg iron-1 mg -205 mg capsule 1 cap PO DAILY alcohol swabs [Alcohol Wipes] Pads, Medicated 1 pad topical QID Qty: 100 4RF Discontinued (DME) blood-glucose meter [FreeStyle Lite Meter] Kit See Rx Instructions .Route Qty: 1 0RF Rx Instructions: As directed (DME) lancets [FreeStyle Lancets] 28 gauge misc See Rx Instructions .Route Qty: 100 4RF Rx Instructions: QID (DME) FreeStyle Lite Strips Strip See Rx Instructions .Route Qty: 100 4RF Rx Instructions: QID Discharge Instructions Instructions: , Sepsis, Adult (DC), Control After Having a Baby, Exercises, Taking Care of Yourself After You Have a Baby Activity:: pelvic rest x8 weeks Equipment/Supplies:: No Equipment Needed Diet:: Normal Diet Discharge Orders Discharge Orders: Discharge Order (Routine); Ordered 11/14/24 Ordered By: Miley Mann OB:DS Summary Summary Episiotomy Description: None Contraception Discussed Contraception Discussed: Yes, [place] Infant Gender-Baby A: Female weight: 8 lb 14.86 oz Status at Discharge Functional status at discharge: independent ambulation Overall status at discharge: patient is back to baseline Mental Status: mental status grossly normal Speech and Movement: speech and movement normal Mood: congruent mood Affect: normal affect Quality:SDOH Health Related Social Needs: Health related social needs problems related to housin g/economic circumst ances (Z59.89) Exam Physical Exam Vital signs: Temp Pulse Resp BP Pulse Ox 97.9 F 71 18 129/73 98 11/14/24 06:00 11/14/24 06:00 11/14/24 06:00 11/14/24 06:00 11/13/24 21:30 Constitutional Constitutional: no acute distress Detailed HEENT Exam Head: Present normocephalic Detailed Respiratory Exam Comments: No respiratory distress Abdominal Exam Comments: soft, non-tender, non-distended. Incision C/D/I Fundal Exam Comment: firm and low Extremities Exam Comment: +1 non-pitting edema noted equally and bilaterally Detailed Skin Exam Skin: Present intact Detailed Neurological Exam Neurological: Present alert and oriented X3 DetailedPsychiatric Exam Psych Exam: Normal Affect, Cooperative and Good Insight PFSH All Active Problems (Updated 11/13/24 @ 16:12 by Miley Mann DO) Acute anemia (Acute) delivery delivered (Acute) 11/11/24. Unscheduled at term. Abnormal labor. Chorioamnioitis. F. Eliza. 4050gm Arrest of dilation, delivered, current hospitalization (Acute) Abnormal labor (Acute) Category II heart rate tracing during labor and delivery (Acute) Slow progress in first stage of labor (Acute) Elevated glucose level (Acute) elevated fasting of 99 on 3 hr GTT, other levels nml (Acute) Medical History (Updated 11/13/24 @ 16:12 by Miley Mann DO) Fibroid uterus Normal labor Missed menses Bleeding in early Fundal height high for dates History of asthma Family History (Updated 04/29/24 @ 13:08 by Ida Dailey CNM) Maternal Grandfather Kidney failure Fatty liver Mother Asthma Cholecystitis Social History (Updated 11/12/24 @ 10:23 by Irlanda Rai MD) Smoking/Tobacco Use Status: Never Smoking risk assessment performed?: Yes Alcohol Intake: never Substance use type: does not use Household members: spouse, children and other Details: spouse De, Rocco Kay Housing: house Number of Children: 1 History History 1 Para 0 Hx # Term Pregnancies 1 Multiple births 0 Hx # Pregnancies 0 Ectopic pregnancies 0 AB induced 0 Hx Number of Living Children 1 AB spontaneous 0 Past Pregnancies Del. Date GA/Weeks # Preg Succ Route Wgt Sex Labor Lgth Anesth esia Location Prov Complic 11/11/24 39 No Yes 8 lb 14.86 oz Female [facility] CNM pt: Alice Delgado Delivery Date: 11/11/24 Last Updated by: Miley Mann, chorioamnioitis and subsequent septic shock. Baby girl, Eliza DS: Data Vitals/I&O Vitals and I&O: Vital Signs Temperature 97.9 F 11/14/24 06:00 Temperature Source Temporal Artery Scan 11/12/24 11:00 Temperature Source Oral 11/14/24 06:00 Pulse 71 11/14/24 06:00 Pulse Rhythm Regular 11/13/24 20:25 Pulse 97 H 11/12/24 11:27 Respiratory Rate 18 11/14/24 06:00 Respiratory Effort Normal 11/11/24 14:32 Respiratory Depth Normal 11/13/24 13:30 Respiratory Pattern Normal 11/11/24 14:32 Blood Pressure 129/73 11/14/24 06:00 Blood Pressure Mean 91 11/14/24 06:00 Blood Pressure Position Supine 11/11/24 14:32 Pulse Oximetry 98 11/13/24 21:30 Respiratory End-tidal CO2 30 11/11/24 11:03 Oxygen Delivery Method Room Air 11/12/24 11:00 Oxygen Flow Rate 0 11/12/24 11:00 Pain Level 3 11/14/24 05:00 Comment MAP 70 11/11/24 13:20 Arterial Systolic 113 11/12/24 10:16 Arterial Diastolic 59 11/12/24 10:16 Arterial Mean 275 11/12/24 11:01 Intake & Output 11/13/24 11/13/24 11/14/24 11:59 23:59 11:59 Output Total 1000 / 1000 Balance -1000 / -1000 Output: Urine 1000 / 1000 Other: Urine Color Yellow Pale Data Completed and Pending Labs on day of discharge: Preliminary micro results at discharge 11/11/24 11:47 Blood Culture - Preliminary Blood NO GROWTH 48 HOURS 11/11/24 11:05 Blood Culture - Preliminary Blood NO GROWTH 48 HOURS
[2024-11-14] MEDS: Ferrous Sulfate 325 MG TAB PO (09:00)
[2024-11-14] MEDS: metroNIDAZOLE 500 MG TAB PO (09:00)
[2024-11-14] MEDS: Lactobacillus Acidophilus CAP 1 CAP PO (09:00)
[2024-11-14] MEDS: Amoxicillin 500/Clav. 125 TAB PO (09:00)
[2024-11-14] MEDS: Docusate Sodium 100 MG CAP PO ×2 (09:00→15:15)
[2024-11-14 12:30] VITALS: BP 123/71; PULSE 88; RESP 18; O2SAT 98
[2024-11-14] MEDS: oxyCODONE 5 MG TAB PO (15:15)
== END 2024-11-14 16:30 | disposition home or self-care (01) | DRG 786 ==
LOC: BCD 12:01 → OBS 12:01 → ICU 11-11 13:58 → OBS 11-12 12:34
PROVIDERS: Advanced Practice Midwife; Obstetrics & Gynecology Gynecology; Admitting Provider Obstetrics & Gynecology; PCP Pediatrics; Visit Provider Obstetrics & Gynecology
PROC: 10D00Z1 Extraction of Products of Conception, Low, Open Approach (ICD-10-PCS; CPT 59514; principal; 2024-11-11 05:40)
DX: O85 Puerperal sepsis; R65.21 Severe sepsis with septic shock; O41.1230 Chorioamnionitis, third trimester, not applicable or unspecified; Z37.0 Single live birth; Z3A.39 39 weeks gestation of pregnancy; O76 Abnormality in fetal heart rate and rhythm complicating labor and delivery; O62.1 Secondary uterine inertia; O75.89 Other specified complications of labor and delivery; R73.9 Hyperglycemia, unspecified; O34.13 Maternal care for benign tumor of corpus uteri, third trimester; E87.6 Hypokalemia; O90.81 Anemia of the puerperium; D64.9 Anemia, unspecified
CPT/HCPCS: 59514; 36410; 36620; 00123; 36415; 36592; 80053; 85027; 85384; 86850; 86900; 86901; 87040; 87637; J1650; 81003; 81015; 83605; 85025; 85610; 85730; 87086; 88307; 99222; 99232; J0290; J0456; J0665; J0690; J0737; J1580; J1885; J2274; J2371; J2405; J3010; J3480

== ENCOUNTER 2024-11-16 15:00 | Outpatient (CLI) | payer BC, SELFPAY ==
--- NOTE | 2024-11-16 15:19 | HPE_ITS ---
Date of service: 11/16/24 Time of Service: 15:19 Assessment and Plan Assessment and plan (1) delivery delivered: Status: Acute Assessment and plan: Patient is 5 days status post primary low-transverse section with preoperative complication of chorioamnionitis and postoperative complication of suspected sepsis. She was transition from the OR to the ICU, to the center and discharged home. She initially had parenteral antibiotics which was converted to oral antibiotics with negative blood cultures. She did have a slightly elevated lactic acid and an elevated white blood cell count which improved significantly. Today she was seen in the office and postoperative and afebrile with normal bowel and bladder function. She did complain more of cephalgia, worse when upright and suspicion for spinal. For this reason, she was admitted to the center as a short stay observation. Anesthesia was consulted to evaluate. She will also have baseline laboratory studies including CBC and CMP. She remains afebrile with otherwise stable vital signs and a normal room air pulse ox. (2) Cephalgia: Status: Acute (3) Acute anemia: Status: Acute History of Present Illness History of Present Illness Chief Complaint: Cephalgia Narrative: Patient is a 24-year-old female now 1 para 1 who underwent a primary low-transverse section for labor arrest on 11/11/2024. Subsequent to that, she did have episodes of hypotension, and suspected sepsis. She was initially transition to the intensive care unit for ongoing evaluation and management. She received broad-spectrum antibiotics. She remained afebrile and was transitioned from parenteral to oral antibiotics. She had been discharged to home and seen in the office today in follow-up. Her biggest complaint today is that of headache which is worse upon standing. She has also had some episodes of dizziness associated. Her lochia is physiologic. She remains afebrile. She was transition from women's wellness to the center for further evaluation and management. Anesthesia was notified for evaluation for spinal headache. Will also obtain baseline laboratory studies which include a CBC along with a CMP. Clinically, she appears stable. Vital signs are stable. She is currently breast-feeding her . She is working on latch and her milk has recently come in. Review of Systems Constitutional Constitutional: Reports as per HPI, Denies body ache(s), Denies chills, Reports fatigue, Reports headache(s), Reports malaise and Denies weakness ENT Ears, Nose, Mouth, and Throat: Reports system reviewed and no additional complaints, except as documented and Reports headache(s) Cardiovascular Cardiovascular: Reports as per HPI, Reports system reviewed and no additional complaints, except as documented, Denies chest pain, Denies chest pain with activity, Reports rapid heart rate, Denies irregular heart rhythm, Denies claudication, Denies leg edema and Reports lightheadedness Respiratory Respiratory: Reports as per HPI, Denies chest congestion and Denies cough Gastrointestinal Gastrointestinal: Reports as per HPI, Reports change in stool character (Somewhat loose stools), Denies cramping, Denies diarrhea, Denies nausea and Denies vomiting Musculoskeletal Musculoskeletal: Reports system reviewed and no additional complaints, except as documented Neurologic Neurologic: Reports headache(s) and Denies weakness Psychiatric Psychiatric: Reports system reviewed and no additional complaints, except as documented Endocrine Endocrine: Reports fatigue PFSH All Active Problems (Updated 11/16/24 @ 15:24 by Mitra Mcneal DO) Cephalgia (Acute) Acute anemia (Acute) delivery delivered (Acute) 11/11/24. Unscheduled at term. Abnormal labor. Chorioamnioitis. F. Eliza. 4050gm Elevated glucose level (Acute) elevated fasting of 99 on 3 hr GTT, other levels nml Medical History Fibroid uterus Normal labor Missed menses Bleeding in early Fundal height high for dates History of asthma Family History Maternal Grandfather Kidney failure Fatty liver Mother Asthma Cholecystitis Social History Smoking/Tobacco Use Status: Never Smoking risk assessment performed?: Yes Alcohol Intake: never Substance use type: does not use Household members: spouse, children and other Details: spouse De, Daughter Eliza Housing: house Number of Children: 1 History History 2 1 Para 0 Hx # Term Pregnancies 1 Multiple births 0 Hx # Pregnancies 0 Ectopic pregnancies 0 AB induced 0 Hx Number of Living Children 1 AB spontaneous 0 Past Pregnancies Del. Date GA/Weeks # Preg Succ Route Wgt Sex Labor Lgth Anesth [facility] 11/11/24 39 No Yes 8 lb 14.86 oz Female [facility]. CNM pt: Alice Delgado Delivery Date: 11/11/24 Last Updated by: Miley Mann, chorioamnioitis and subsequent septic shock. Baby girl, Eliza Milner Allergies and Home Medications Allergies Allergy/AdvReac Type Severity Reaction Status Date / Time No Known Allergies Allergy Verified 11/16/24 14:33 Home Medications ?Medication ?Instructions ?Recorded ?Confirmed ?Type vitamins no.148-iron 27 1 cap PO DAILY 03/15/24 11/10/24 History mg-folate 1 mg-dha 205 mg capsule magnesium 200 mg tablet 400 mg PO DAILY 07/05/24 11/10/24 History Lactobacillus acidophilus 500 500 mmu cells PO BID antibiotic 11/14/24 Rx million cell capsule use 30 days #60 caps docusate sodium 100 mg capsule 100 mg PO TID PRN PRN 10 days #20 11/14/24 Rx (Colace) caps ferrous sulfate 325 mg (65 mg 325 mg PO DAILY 30 days #30 tabs 11/14/24 Rx iron) tablet ibuprofen 600 mg tablet 600 mg PO Q6H PRN PRN 30 days #30 11/14/24 Rx caps oxycodone 5 mg tablet 5 mg PO Q6H PRN PRN 5 days #15 tabs 11/14/24 Rx Exam Const General: cooperative, healthy appearing, comfortable, no acute distress, well developed and well groomed Nutritional Appearance: average body habitus Orientation: alert, awake and oriented x3 HENMT Head: normal to inspection Eyes General: appearance normal, both eyes and all related structures Neck Neck: normal visual inspection Resp Effort & Inspection: normal respiratory effort, no audible wheezes and no cough Cardio Rate: regular rate Rhythm: regular rhythm GI Palpation: soft, not firm and no guarding Skin General skin exam: no rashes or lesions noted Neuro General: patient alert, patient awake and patient oriented x3 Extrem General: normal to inspection, no calf tenderness and edema Results Labs 11/16/24 Unknown 11/16/24 15:18 Time Spent Time spent with Patient: 40-54 minutes Time was spent: preparing to see the patient(eg.review tests), obtaining and/or reviewing separately otained hiistory, ordering medications,tests, procedures, referring, communicating with other health career professional, indepentently interpreting results and counseling the patient
[2024-11-16 15:36] LABS: HCT 35.5 % (36.0-46.0); HGB 11.7 g/dL (11.2-15.7); MCH 30.2 pg (27.0-33.0); MCV 92 fL (80-95); Platelet Count 314 10^3/uL (130-400); RBC 3.88 10^6/uL (3.93-5.22); RDW 14.7 % (11.7-14.6); RDW-SD 48.8 fL
[2024-11-16 15:43] VITALS: BP 116/79; PULSE 104; RESP 18; TEMP 36.5; O2SAT 99
[2024-11-16 15:52] LABS: ALT 62 U/L (14-59); AST 44 U/L (15-37); Albumin 2.4 g/dL (3.4-5.0); Alkaline Phosphatase 198 U/L (46-116); Anion Gap 8.8 mmol/L (3-11); BUN 16 mg/dL (7-18); Bilirubin, Total 0.37 mg/dL (0.2-1.0); CO2 27.2 mmol/L (21.0-32.0); CREATININE 0.7 mg/dL (0.55-1.02); Calcium 9.2 mg/dL (8.5-10.1); Chloride 104 mmol/L (98-107); Estimated GFR 125.33 (mL/min/1.73m2); Glucose 102 mg/dL (74-106); Potassium 3.8 mmol/L (3.5-5.1); Sodium 140 mmol/L (136-145); Total Protein 7.1 g/dL (6.4-8.2)
--- NOTE | 2024-11-16 15:56 | PGE_ITS ---
Date of Service Date of service: 11/16/24 Time of Service: 15:57 Subjective Subjective Interval history since last seen: Patient has been seen by anesthesia who agrees that she may be having a spinal headache. Instructions for outpatient management and precautions were given. Her laboratory studies have significantly improved. Her white blood cell count has normalized, hemoglobin is 11.7, though this may be hemoconcentrated. She does have a mild elevation in her liver enzymes which were repeated at a later date in the postoperative timeframe. She will continue to monitor symptomatology and be seen back in the office in 1 week. Objective Last Vital Signs Temp 97.7 F 11/16/24 15:43 Pulse 104 H 11/16/24 15:43 Resp 18 11/16/24 15:43 BP 116/79 11/16/24 15:43 Pulse Ox 99 11/16/24 15:43 Laboratory Results - last 24 hr 11/16/24 15:30 WBC 13.80 H RBC 3.88 L Hgb 11.7 Hct 35.5 L MCV 92 MCH 30.2 MCHC 33.0 RDW 14.7 H Plt Count 314 MPV 10.0 Sodium 140 Potassium 3.8 Chloride 104 Carbon Dioxide 27.2 Anion Gap 8.8 BUN 16 Creatinine 0.7 Est GFR (CKD-EPI 2020) 125.33 Glucose 102 Calcium 9.2 Total Bilirubin 0.37 AST 44 H ALT 62 H Alkaline Phosphatase 198 H Total Protein 7.1 Albumin 2.4 L Time Spent with Patient Time Spent with Patient: <25 minutes Time was spent: preparing to see the patient(eg.review tests), obtaining and/or reviewing separately otained hiistory, ordering medications,tests, procedures and referring, communicating with other health assisted living care manager
--- NOTE | 2024-11-16 16:25 | ANES_ITS ---
Date of service: 11/16/24 Time of Service: 16:25 Anesthesia Note Report Anesthesia Note: I was asked to see Nasir for evaluation of PDPH. She had Epidural last evening and then a spinal Thursday morning. No complications noted during placement, despite her complicated hospital course. Today she noticed when sitting and worse when standing a headache that radiates into neck. Needs to sit down every 30 minutes or so but able to do ADL's and care for baby. She is calm and conversive in no acute distress in room. Denies any paresthesia/weakness, vision changes, fever/chills, only complains of mild ot moderate headache. She is not orthostatic. Exam of back unremarkable without redness, swelling, discharge where needle insertions were. As she seems to be having a mild to moderate PDPH, I encouraged PO liquids/hydration as well as tylenol and ibupr ofen. She does not drink caffeine, but did advise 300-400mg may be helpful once or twice a day. We discussed if symptoms worsen (worse headache/paresthesia/visual changes/motor weakness), do not ignore this and either call to speak to anesthesia or go to the nearest ER/Call 911. Discussed EBP, however this is not without risk and given symptoms, I would expect this to resolve over the next week. Updated Dr. Mcneal as well and sent home with discharge instructions. no questions from her or her who was present for the conversation.
--- NOTE | 2024-11-24 14:17 | PDOC.ANES ---
Date of service: 11/24/24 Time of Service: 13:10 Anesthesia Note Report Anesthesia Note: Follow up call with Nasir today who reported for has post dural puncture headache symptoms for approximately 9 days managed with caffeine, tylenol, ibuprofen. Symptoms have completely resolved. Encouraged patient to reach out with any additional concerns.
== END 2024-11-16 16:20 ==
LOC: BCD 15:01 → OBS 15:07
PROVIDERS: PCP Pediatrics; Visit Provider Obstetrics & Gynecology
DX: O99.893 Other specified diseases and conditions complicating puerperium (principal); R51.9 Headache, unspecified; D64.9 Anemia, unspecified
CPT/HCPCS: 36415; 80053; 85027

== ENCOUNTER 2024-12-22 15:59 | Outpatient (REF) | payer BC, SELFPAY ==
--- NOTE | 2024-12-22 16:00 | PAPFT_PTH ---
PATIENT: Nasir Silvestre LOC: [facility] U#:[id number] AGE/SX: 24/F ROOM: RE12/22/[address]: Sarah Delgado CNM : 2000 BED: DIS: 12/22/2024 SPEC #: [id number] RECD: 12/22/24 17:18 STATUS: MIKE REArmando #: [id number] CINDY: 12/22/24 16:[address]: Sarah Delgado DEPT: [facility] Cytology RECD BY: Coral Shahid ENTERED: 12/22/24 17:19 SP TYPE: PAPFT SEAN DR: Mary Soria Tissues: 1 - CX/ENDOCX FOR PAP SMEARS Procedures: PAP THIN PREP/UVM Screening Comments: [id number]
== END 2024-12-22 16:00 | disposition home or self-care (01) ==
LOC: LBN 15:59
PROVIDERS: PCP Pediatrics; Visit Provider Advanced Practice Midwife
DX: Z12.4 Encounter for screening for malignant neoplasm of cervix (principal)
CPT/HCPCS: 88142